=== PATIENT | female | born 1980 | race American Indian/Alaskan Native ===

== ENCOUNTER 2019-12-02 17:15 | Inpatient (IN) | payer OTHER ==
[2019-12-02 18:11] LABS: Basophils # (Auto) 0.1 K/mm3 (0.0-0.1); Eosinophils # (Auto) 0.1 K/mm3 (0.0-0.4); Eosinophils % (Auto) 2.1 % (0.0-4.3); Hematocrit 40.2 % (30.3-42.9); Hemoglobin 13.6 gm/dl (10.1-14.3); Lymphocytes # (Auto) 1.3 K/mm3 (1.2-5.4); Lymphocytes % (Auto) 24.3 % (13.4-35.0); Mean Corpuscular HGB Conc 34 % (30-34); Mean Corpuscular Volume 89 fl (79-97); Monocytes # (Auto) 0.3 K/mm3 (0.0-0.8); Monocytes % (Auto) 5.7 % (0.0-7.3); Platelet Count 322 K/mm3 (140-440); Red Blood Count 4.51 M/mm3 (3.65-5.03); Red Cell Distribution Width 16.4 % (13.2-15.2)
[2019-12-02 18:38] LABS: Blood Urea Nitrogen 9 mg/dL (7-17); Calcium 9.2 mg/dL (8.4-10.2); Hemolysis Index 102
[2019-12-02 18:47] LABS: BUN/Creatinine Ratio 13
[2019-12-02 19:13] LABS: Basophils # (Auto) 0.1 K/mm3 (0.0-0.1); Eosinophils # (Auto) 0.1 K/mm3 (0.0-0.4); Hematocrit 39.3 % (30.3-42.9); Hemoglobin 12.8 gm/dl (10.1-14.3); Lymphocytes # (Auto) 1.4 K/mm3 (1.2-5.4); Lymphocytes % (Auto) 28.7 % (13.4-35.0); Mean Corpuscular HGB Conc 33 % (30-34); Mean Corpuscular Volume 90 fl (79-97); Monocytes # (Auto) 0.3 K/mm3 (0.0-0.8); Monocytes % (Auto) 6.8 % (0.0-7.3); Platelet Count 314 K/mm3 (140-440); Red Blood Count 4.36 M/mm3 (3.65-5.03); Red Cell Distribution Width 16.3 % (13.2-15.2)
[2019-12-02 19:14] LABS: Creatine Kinase MB 2.6 ng/mL (0.0-4.0)
[2019-12-02 19:21] LABS: Bilirubin,Urine NEG (Negative); Blood,Urine NEG (Negative); Color,Urine Colorless (Yellow); Protein,Urine <15 mg/dL mg/dL (Negative); RBC,Urine < 1.0 /HPF (0.0-6.0); Urobilinogen,Urine < 2.0 mg/dL (<2.0); WBC,Urine < 1.0 /HPF (0.0-6.0)
--- NOTE | 2019-12-02 19:23 | Emergency Department Report ---
ED General Adult HPI - General Chief complaint: Neuro Symptoms/Deficit Stated complaint: POSS STROKE Time Seen by Provider: 12/02/19 17:37 Source: EMS Mode of arrival: Stretcher Limitations: No Limitations - History of Present Illness Initial comments: Patient states on Saturday she noticed that she began to have weakness of her right side that has progressively gotten worse since that time. Patient states on Saturday she also began to have slurred speech has become worse as well. Patient also complains of having numbness in her right arm and leg. She states that she is not able to walk appropriately due to the weakness in her right leg. Patient denies a history of hypertension, diabetes, hyperlipidemia. Patient also denies IV drug use or family history of heart murmurs. -: Gradual Severity scale (0 -10): 0 Consistency: constant Improves with: none Worsens with: none Associated Symptoms: denies other symptoms Treatments Prior to Arrival: none - Related Data Allergies Allergy/AdvReac Type Severity Reaction Status Date / Time No Known Allergies Allergy Unverified 12/02/19 17:52 ED Review of Systems ROS: Stated complaint: POSS STROKE Other details as noted in HPI Constitutional: denies: chills, fever Eyes: denies: eye pain, eye discharge, vision change ENT: denies: ear pain, throat pain Respiratory: denies: cough, shortness of breath, wheezing Cardiovascular: denies: chest pain, palpitations Endocrine: no symptoms reported Gastrointestinal: denies: abdominal pain, nausea, diarrhea Genitourinary: denies: urgency, dysuria, discharge Musculoskeletal: denies: back pain, joint swelling, arthralgia Skin: denies: rash, lesions Neurological: weakness, numbness. denies: headache, paresthesias Psychiatric: denies: anxiety, depression Hematological/Lymphatic: denies: easy bleeding, easy bruising ED Past Medical Hx - Past Medical History Previous Medical History?: No - Surgical History Past Surgical History?: Yes Hx Cholecystectomy: Yes - Social History Smoking Status: Current Every Day Smoker Substance Use Type: Alcohol ED Physical Exam - General Limitations: No Limitations ED Course Vital Signs 12/02/19 12/02/19 12/02/19 17:50 18:00 20:00 Temperature 98.2 F Pulse Rate 72 65 59 L Respiratory 16 15 14 Rate Blood Pressure 120/73 118/73 Blood Pressure 138/81 [Right] O2 Sat by Pulse 100 100 99 Oximetry 12/02/19 12/02/19 22:27 23:00 Temperature Pulse Rate 51 L Respiratory 18 11 L Rate Blood Pressure 136/79 Blood Pressure [Right] O2 Sat by Pulse 99 Oximetry ED Medical Decision Making - Lab Data Result diagrams: 12/02/19 18:34 12/02/19 17:56 Lab Results 12/02/19 12/02/19 12/02/19 Range/Units 17:56 17:56 18:34 WBC 5.3 5.0 (4.5-11.0) K/mm3 RBC 4.51 4.36 (3.65-5.03) M/mm3 Hgb 13.6 12.8 (10.1-14.3) gm/dl Hct 40.2 39.3 (30.3-42.9) % MCV 89 90 (79-97) fl MCH 30 29 (28-32) pg MCHC 34 33 (30-34) % RDW 16.4 H 16.3 H (13.2-15.2) % Plt Count 322 314 (140-440) K/mm3 Lymph % (Auto) 24.3 28.7 (13.4-35.0) % Wilkin % (Auto) 5.7 6.8 (0.0-7.3) % Eos % (Auto) 2.1 2.0 (0.0-4.3) % Baso % (Auto) 1.0 1.0 (0.0-1.8) % Lymph # 1.3 1.4 (1.2-5.4) K/mm3 Wilkin # 0.3 0.3 (0.0-0.8) K/mm3 Eos # 0.1 0.1 (0.0-0.4) K/mm3 Baso # 0.1 0.1 (0.0-0.1) K/mm3 Seg Neutrophils % 66.9 61.5 (40.0-70.0) % Seg Neutrophils # 3.6 3.1 (1.8-7.7) K/mm3 PT (12.2-14.9) Sec. INR (0.87-1.13) APTT (24.2-36.6) Sec. Thrombin Time (15.1-19.6) Sec. Sodium 139 (137-145) mmol/L Potassium 4.2 (3.6-5.0) mmol/L Chloride 101.6 (98-107) mmol/L Carbon Dioxide 23 (22-30) mmol/L Anion Gap 19 mmol/L BUN 9 (7-17) mg/dL Creatinine 0.7 (0.6-1.2) mg/dL Estimated GFR > 60 ml/min BUN/Creatinine Ratio 13 % Glucose 93 (65-100) mg/dL Calcium 9.2 (8.4-10.2) mg/dL Total Creatine Kinase 124 (30-135) units/L CK-MB (CK-2) 3.0 (0.0-4.0) ng/mL CK-MB (CK-2) Rel Index 2.4 (0-4) Troponin T < 0.010 (0.00-0.029) ng/mL Urine Color (Yellow) Urine Turbidity (Clear) Urine pH (5.0-7.0) Ur Specific [place] (1.003-1.030) Urine Protein (Negative) mg/dL Urine Glucose (UA) (Negative) mg/dL Urine Ketones (Negative) mg/dL Urine Blood (Negative) Urine Nitrite (Negative) Urine Bilirubin (Negative) Urine Urobilinogen (<2.0) mg/dL Ur Leukocyte Esterase (Negative) Urine WBC (Auto) (0.0-6.0) /HPF Urine RBC (Auto) (0.0-6.0) /HPF Urine HCG, Qual (Negative) Urine Opiates Screen Urine Methadone Screen Ur Barbiturates Screen Ur Phencyclidine Scrn Ur Amphetamines Screen U Benzodiazepines Scrn Urine Cocaine Screen U Marijuana (THC) Screen Drugs of Abuse Note Plasma/Serum Alcohol (0-0.07) % 12/02/19 12/02/19 12/02/19 Range/Units 18:34 18:34 18:34 WBC (4.5-11.0) K/mm3 RBC (3.65-5.03) M/mm3 Hgb (10.1-14.3) gm/dl Hct (30.3-42.9) % MCV (79-97) fl MCH (28-32) pg MCHC (30-34) % RDW (13.2-15.2) % Plt Count (140-440) K/mm3 Lymph % (Auto) (13.4-35.0) % Wilkin % (Auto) (0.0-7.3) % Eos % (Auto) (0.0-4.3) % Baso % (Auto) (0.0-1.8) % Lymph # (1.2-5.4) K/mm3 Wilkin # (0.0-0.8) K/mm3 Eos # (0.0-0.4) K/mm3 Baso # (0.0-0.1) K/mm3 Seg Neutrophils % (40.0-70.0) % Seg Neutrophils # (1.8-7.7) K/mm3 PT 13.3 (12.2-14.9) Sec. INR 1.00 (0.87-1.13) APTT 27.7 (24.2-36.6) Sec. Thrombin Time 14.6 L (15.1-19.6) Sec. Sodium (137-145) mmol/L Potassium (3.6-5.0) mmol/L Chloride (98-107) mmol/L Carbon Dioxide (22-30) mmol/L Anion Gap mmol/L BUN (7-17) mg/dL Creatinine (0.6-1.2) mg/dL Estimated GFR ml/min BUN/Creatinine Ratio % Glucose (65-100) mg/dL Calcium (8.4-10.2) mg/dL Total Creatine Kinase 103 (30-135) units/L CK-MB (CK-2) 2.6 (0.0-4.0) ng/mL CK-MB (CK-2) Rel Index 2.5 (0-4) Troponin T < 0.010 (0.00-0.029) ng/mL Urine Color (Yellow) Urine Turbidity (Clear) Urine pH (5.0-7.0) Ur Specific [place] (1.003-1.030) Urine Protein (Negative) mg/dL Urine Glucose (UA) (Negative) mg/dL Urine Ketones (Negative) mg/dL Urine Blood (Negative) Urine Nitrite (Negative) Urine Bilirubin (Negative) Urine Urobilinogen (<2.0) mg/dL Ur Leukocyte Esterase (Negative) Urine WBC (Auto) (0.0-6.0) /HPF Urine RBC (Auto) (0.0-6.0) /HPF Urine HCG, Qual (Negative) Urine Opiates Screen Urine Methadone Screen Ur Barbiturates Screen Ur Phencyclidine Scrn Ur Amphetamines Screen U Benzodiazepines Scrn Urine Cocaine Screen U Marijuana (THC) Screen Drugs of Abuse Note Plasma/Serum Alcohol 0.07 (0-0.07) % 12/02/19 12/02/19 12/02/19 Range/Units 18:40 18:40 20:30 WBC (4.5-11.0) K/mm3 RBC (3.65-5.03) M/mm3 Hgb (10.1-14.3) gm/dl Hct (30.3-42.9) % MCV (79-97) fl MCH (28-32) pg MCHC (30-34) % RDW (13.2-15.2) % Plt Count (140-440) K/mm3 Lymph % (Auto) (13.4-35.0) % Wilkin % (Auto) (0.0-7.3) % Eos % (Auto) (0.0-4.3) % Baso % (Auto) (0.0-1.8) % Lymph # (1.2-5.4) K/mm3 Wilkin # (0.0-0.8) K/mm3 Eos # (0.0-0.4) K/mm3 Baso # (0.0-0.1) K/mm3 Seg Neutrophils % (40.0-70.0) % Seg Neutrophils # (1.8-7.7) K/mm3 PT (12.2-14.9) Sec. INR (0.87-1.13) APTT (24.2-36.6) Sec. Thrombin Time (15.1-19.6) Sec. Sodium (137-145) mmol/L Potassium (3.6-5.0) mmol/L Chloride (98-107) mmol/L Carbon Dioxide (22-30) mmol/L Anion Gap mmol/L BUN (7-17) mg/dL Creatinine (0.6-1.2) mg/dL Estimated GFR ml/min BUN/Creatinine Ratio % Glucose (65-100) mg/dL Calcium (8.4-10.2) mg/dL Total Creatine Kinase (30-135) units/L CK-MB (CK-2) (0.0-4.0) ng/mL CK-MB (CK-2) Rel Index (0-4) Troponin T (0.00-0.029) ng/mL Urine Color Colorless (Yellow) Urine Turbidity Clear (Clear) Urine pH 6.0 (5.0-7.0) Ur Specific [place] 1.001 L (1.003-1.030) Urine Protein <15 mg/dl (Negative) mg/dL Urine Glucose (UA) Neg (Negative) mg/dL Urine Ketones Neg (Negative) mg/dL Urine Blood Neg (Negative) Urine Nitrite Neg (Negative) Urine Bilirubin Neg (Negative) Urine Urobilinogen < 2.0 (<2.0) mg/dL Ur Leukocyte Esterase Neg (Negative) Urine WBC (Auto) < 1.0 (0.0-6.0) /HPF Urine RBC (Auto) < 1.0 (0.0-6.0) /HPF Urine HCG, Qual Negative (Negative) Urine Opiates Screen Presumptive negative Urine Methadone Screen Presumptive negative Ur Barbiturates Screen Presumptive negative Ur Phencyclidine Scrn Presumptive negative Ur Amphetamines Screen Presumptive negative U Benzodiazepines Scrn Presumptive negative Urine Cocaine Screen Presumptive negative U Marijuana (THC) Screen Presumptive negative Drugs of Abuse Note Disclamer Plasma/Serum Alcohol (0-0.07) % - EKG Data -: EKG Interpreted by Ok EKG shows normal: sinus rhythm Rate: normal - Radiology Data Radiology results: report reviewed - Medical Decision Making Initially told neurology was not contacted due to the patient's symptoms started 72 hours prior to arrival to the ED CT of the head showed a subacute stroke CTA of the head and neck shows a complete ICA occlusion left side Patient given p.o. aspirin Critical care attestation.: If time is entered above; I have spent that time in minutes in the direct care of this critically ill patient, excluding procedure time. ED Disposition Clinical Impression: CVA (cerebral vascular accident) Disposition: DC-[id number] OP ADMIT IP TO THIS HOSP Is pt being admited?: Yes Does the pt Need Aspirin: No Condition: Fair Referrals: PRIMARY CARE, [Primary Care Provider] - 3-5 Days - Assessment Assessment Interval: Baseline - Level of Consciousness 1a. Level of Consciousness: alert/keenly responsive - LOC Questions 1b. LOC Questions: answers both correctly - LOC Command 1c. LOC Commands: performs tasks correctly - Best Gaze 2. Best Gaze: normal - Visual 3. Visual: partial hemianopia - Facial Palsy 4. Facial Palsy: minor paralysis - Motor Arm 5a. Motor Arm Left: no drift 5b. Motor Arm Right: some gravity effort - Motor Leg 6a. Motor Leg Left: no drift 6b. Motor Leg Right: some gravity effort - Limb Ataxia 7. Limb Ataxia: absent - Sensory 8. Sensory: mild/moderate sensory loss - Best Language 9. Best Language: no aphasia - Dysarthria 10. Dysarthria: mild/moderate dysarthria - Extinction and Inattention 11. Extinction/Inattention: no abnormality - Scoring Total Score: 8 Stroke Severity: Moderate Stroke
[2019-12-02 19:25] LABS: Amphetamine Screen,Urine PRESUMPTIVE NEGATIVE; Benzodiazepines Screen,Urine PRESUMPTIVE NEGATIVE; Cannabinoid Screen,Urine PRESUMPTIVE NEGATIVE; Cocaine Screen,Urine PRESUMPTIVE NEGATIVE; Methadone Screen,Urine PRESUMPTIVE NEGATIVE; Opiate Screen,Urine PRESUMPTIVE NEGATIVE
--- NOTE | 2019-12-02 19:25 | Cat Scan Report ---
CT HEAD WITHOUT CONTRAST INDICATION / CLINICAL INFORMATION: Stroke symptoms. TECHNIQUE: All CT scans at this location are performed using CT dose reduction for ALARA by means of automated e xposure control. COMPARISON: None available. FINDINGS: HEMORRHAGE: No evidence of intracranial hemorrhage or extra-axial fluid collection. EXTRA-AXIAL SPACES: Cortical sulci, sylvian fissures and basilar cisterns have an unremarkable appear ance. VENTRICULAR SYSTEM: The ventricular system is of normal size and configuration. CEREBRAL PARENCHYMA: There is a subtle area of decreased brain parenchymal attenuation near the left parietal vertex. (Series CT #2, image 17 and 18) This could represent an area of subacute ischemia. A similar but more subtle finding is observed in the adjacent left frontal lobe. Correlation with magn etic resonance imaging to include diffusion-weighted imaging is suggested. MIDLINE SHIFT OR HERNIATION: There is no mass effect. CEREBELLUM / BRAINSTEM: Brainstem and cerebellum have an unremarkable appearance. MIDLINE STRUCTURES:No abnormalities of the pituitary gland or pineal region are identified. INTRACRANIAL VESSELS:No abnormalities are identified on this noncontrast head CT. ORBITS: visualized portions of the orbits have an unremarkable appearance. SOFT TISSUES of HEAD: No significant abnormality. CALVARIUM: Evaluation of bone windows reveals no abnormalities. PARANASAL SINUSES / MASTOID AIR CELLS: Paranasal sinuses are free from inflammatory mucosal disease. Mastoid air cells are normally pneumatized. IMPRESSION: 1. Subtle areas of decreased brain parenchymal attenuation in the left frontal and parietal lobes may reflect sequelae of subacute infarction. Follow-up with MRI brain would be useful for further evalua tion of these findings. Signer Name: Yury Bianchi MD Signed: 12/02/2019 7:20 PM Workstation Name: [id number]
[2019-12-02 19:59] LABS: Partial Thromboplastin Time 27.7 Sec. (24.2-36.6); Thrombin Time 14.6 Sec. (15.1-19.6)
[2019-12-02 21:06] LABS: HCG Qualitative,Urine Negative (Negative)
--- NOTE | 2019-12-02 22:49 | Cat Scan Report ---
CT angio neck INDICATION / CLINICAL INFORMATION: 39 years Female; Stroke-Like Symptoms. TECHNIQUE: Thin cut axial images obtained through the head during IV bolus contrast administration. S agittal, coronal, and 3 plane MIP reconstructions performed by the technologist. NASCET type criteria used evaluate stenoses. All CT scans at this location are performed using CT dose reduction for ALAR A by means of automated exposure control. COMPARISON: None available. FINDINGS: CAROTID ARTERIES: There is no significant stenosis involving the carotid bifurcations or proximal int ernal carotid arteries by NASCET criteria. However, there is relative small caliber of the more dista l cervical left ICA without focal narrowing at. There is also suggestion of mild thickening of the wa ll involving the mid to distal left cervical ICA. There is notable irregularity of the cavernous segm ent of the left ICA which would be dictated in detail on the CTA head. VERTEBRAL ARTERIES: There is no significant focal stenosis involving the visualized vertebral arterie s. ARCH: The arch vessels are obscured by the streak artifact resulting from the dense contrast within t he adjacent venous structures. However, there is no clear evidence of significant stenosis involving the arch vessels. ADDITIONAL FINDINGS: Remainder of the surrounding soft tissues are grossly normal. IMPRESSION: There is decrease caliber of the left cervical carotid artery with notable irregularity of the visual ized intracranial segments; the CTA head will be dictated separately. There is no significant stenosis involving the carotid bifurcations or vertebral arteries. There was some delay dictation of this exam in that I was not notified by the technologist. Signer Name: Freeman Castillo MD Signed: 12/02/2019 10:44 PM Workstation Name: [id number]
--- NOTE | 2019-12-02 23:00 | Cat Scan Report ---
CT angio head INDICATION / CLINICAL INFORMATION: 39 years Female; Stroke-Like Symptoms. TECHNIQUE: Thin cut axial images obtained through the head during IV bolus contrast administration. S agittal, coronal, and 3 plane MIP reconstructions performed by the technologist. NASCET type criteria used evaluate stenoses. Automated exposure control utilized for radiation reduction purposes. COMPARISON: None available. FINDINGS: INTERNAL CAROTID ARTERIES: There is occlusion of the distal left ICA at the clinoid segment at. There is notable irregularity and small caliber of the left ICA more proximally. There appears be collater al flow via the posterior communicating arteries which opacifies the left MCA of vessels. There is slight calcification involving distal right ICA. There appears to be mild to moderate narrow ing of the right clinoid segment. VERTEBROBASILAR SYSTEM: There is no significant focal stenosis involving the vertebral basilar system . CEREBRAL ARTERIES: The motion degrades the image quality. However, there is no clear evidence of sign ificant stenosis involving the proximal cerebral arteries. There is relative decreased attenuation in volving the distal left MCA vessels, particularly along the high left lateral frontal region. ANEURYSM: None identified. ADDITIONAL FINDINGS: This mild mucosal thickening along the posterior right maxillary sinus. IMPRESSION: 1. There is occlusion of the distal left ICA with collateral flow as detailed above. There is notable irregularity and small caliber of the more proximal left ICA. There is relative decreased opacificat ion of the distal left MCA branches along the high left frontal region. 2. There is mild to moderate narrowing of the distal right ICA. There was some delay in the dictation of this exam, I was not initially notified by the radiochemical technician up on completion. Signer Name: Freeman Castillo MD Signed: 12/02/2019 10:55 PM Workstation Name: [id number]
[2019-12-02] MEDS ORDERED: ASPIRIN 81 MG TAB CHEW PO ONE (23:31)
[2019-12-02] MEDS ORDERED: ONDANSETRON 4 MG/2 ML INJ IV PRN ×2 (23:57)
[2019-12-02] MEDS ORDERED: MAGNESIUM HYDROXIDE (MOM) ORAL LIQD UDC PO PRN ×2 (23:57)
[2019-12-02] MEDS ORDERED: ACETAMINOPHEN 325 MG TAB PO PRN ×2 (23:57)
[2019-12-02] MEDS ORDERED: METOCLOPRAMIDE 10 MG TAB PO PRN (23:57)
[2019-12-02] MEDS ORDERED: PROMETHAZINE 25 MG RECT SUPP PR PRN (23:57)
[2019-12-02] MEDS ORDERED: MORPHINE 2 MG/1 ML INJ IV PRN (23:57)
--- NOTE | 2019-12-02 23:58 | Consultation ---
History of Present Illness - Reason for Consult Consult date: 12/02/19 - History of Present Illness [facility] Consult Services Stat Consult Date of Service: 12/02/2019 23:36:25 Impression: Rule Out Acute Ischemic Stroke Comments/Sign-Out: Subacute left MCA dist isch strokes with left ICA occlusion. Suggestive of cardioembolic stroke- admit for RERE and permanant loop recorder, hypercoag studies CT HEAD: Reviewed LMCA subacute stroke and L ICA occlusion Metrics: [facility] Notification Time: 12/02/2019 23:36:25 Stamp Time: 12/02/2019 23:36:25 Video Start Time: 12/02/2019 23:47:16 Our recommendations are outlined below. Recommendations: FLP/A1c Imaging Studies: MRI Head MRA Head and Neck Without Contrast When Available - Stroke Protocol Echocardiogram - Transthoracic Echocardiogram Therapies: Physical Therapy, Occupational Therapy, Speech Therapy Assessment When Applicable Disposition: Neurology Follow Up Recommended Sign Out: Discussed with Emergency Department Provider ----- Chief Complaint: right sided weakness History of Present Illness: Patient is a 39 year old Female. 39yF with no significant hx here for acute neuro changes. Symptom started 4 days ago last Saturday. She felt a little weakness of the right arm and it was uncoordinated. Yesterday she felt that the right leg was not moving properly. +Tobacco smoking No etoh or illciit drug use Past Medical History: Examination: BP(120/73), 1A: Level of Consciousness - Alert; keenly responsive + 0 1B: Ask Month and Age - Both Questions Right + 0 1C: Blink Eyes & Squeeze Hands - Performs Both Tasks + 0 2: Test Horizontal Extraocular Movements - Normal + 0 3: Test Visual Farmer - No Visual Loss + 0 4: Test Facial Palsy (Use Grimace if Obtunded) - Normal symmetry + 0 5A: Test Left Arm Motor Drift - No Drift for 10 Seconds + 0 5B: Test Right Arm Motor Drift - Drift, hits bed + 2 6A: Test Left Leg Motor Drift - No Drift for 5 Seconds + 0 6B: Test Right Leg Motor Drift - Drift, but doesn't hit bed + 1 7: Test Limb Ataxia (FNF/Heel-Grigsby) - No Ataxia + 0 8: Test Sensation - Mild-Moderate Loss: Less Sharp/More Dull + 1 9: Test Language/Aphasia - Normal; No aphasia + 0 10: Test Dysarthria - Normal + 0 11: Test Extinction/Inattention - No abnormality + 0 NIHSS Score: 4 Due to the immediate potential for life-threatening deterioration due to underlying acute neurologic illness, I spent 35 minutes providing critical care. This time includes time for face to face visit via telemedicine, review of medical records, imaging studies and discussion of findings with providers, the patient and/or family. Dr Ye Portillo [facility] Case [id number] Medications and Allergies Allergies Allergy/AdvReac Type Severity Reaction Status Date / Time No Known Allergies Allergy Unverified 12/02/19 17:52 Exam - Vital Signs Vital signs: Vital Signs Temp Pulse Resp BP Pulse Ox 98.2 F 68 18 138/81 100 12/02/19 17:50 12/02/19 17:50 12/02/19 17:50 12/02/19 17:50 12/02/19 17:50 Results - Lab Results 12/02/19 18:34 12/02/19 17:56 Most recent lab results Calcium 9.2 mg/dL (8.4-10.2) 12/02/19 17:56
--- NOTE | 2019-12-03 00:14 | History and Physical Report ---
History of Present Illness Date of examination: 12/02/19 Date of admission: 12/02/19 23:41 Chief complaint: Right Sided weakness and Numbness. History of present illness: Patient is a 39-year-old -Finnish female who presents to the emergency room today complaining of right-sided weakness and numbness. Symptoms was said to have started about 5 days ago and has gotten progressively worse. 3 days ago she started having slow speech but she denies any difficulty swallowing and denies any facial droop. Patient denies any fever or chills, no chest pain or shortness of breath, no headache or dizziness, no hematuria or dysuria, no history of cough. Patient denies any sick contacts and no recent travel. She denies contact with anyone with COVID-19. Work-up in the emergency room today shows complete occlusion of the left ICA on CT angiogram of the brain. CT scan of the head showed subacute stroke. Tele-neurology was consulted and recommendation is to place patient on aspirin and Plavix and also schedule patient for MRI of the brain and echocardiogram. Patient is to undergo full CVA work-up. Past History Past Medical History: No medical history Past Surgical History: No surgical history Social history: no significant social history Family history: diabetes (Uncle and Grand mother had D/Mellitus) Medications and Allergies Allergies Allergy/AdvReac Type Severity Reaction Status Date / Time No Known Allergies Allergy Verified 12/03/19 00:20 Active Meds: Active Medications Acetaminophen (Tylenol) 650 mg PO Q4H PRN PRN Reason: Pain, Mild (1-3) Acetaminophen (Tylenol) 650 mg PO Q4H PRN PRN Reason: Pain MILD(1-3)/Fever >100.5/CASTRO Aspirin (Aspirin) 325 mg PO QDAY [facility] Atorvastatin Calcium (Lipitor) 40 mg PO QHS [facility] Bisacodyl (Dulcolax) 10 mg [place] QDAY PRN PRN Reason: Constipation Clopidogrel Bisulfate (Plavix) 75 mg PO QDAY [facility] Magnesium Hydroxide (Milk Of Magnesia) 30 ml PO Q4H PRN PRN Reason: Constipation Magnesium Hydroxide (Milk Of Magnesia) 30 ml PO Q4H PRN PRN Reason: Constipation Metoclopramide HCl (Reglan) 10 mg PO Q6H PRN PRN Reason: Nausea And Vomiting Morphine Sulfate (Morphine) 2 mg IV Q4H PRN PRN Reason: Pain, Moderate (4-6) Ondansetron HCl (Zofran) 4 mg IV Q8H PRN PRN Reason: Nausea And Vomiting Ondansetron HCl (Zofran) 4 mg IV Q8H PRN PRN Reason: Nausea And Vomiting Promethazine HCl (Phenergan) 25 mg [place] Q6H PRN PRN Reason: Nausea And Vomiting Sodium Chloride (Sodium Chloride Flush Syringe 10 Ml) 10 ml INJ PRN PRN PRN Reason: LINE FLUSH Sodium Chloride (Sodium Chloride Flush Syringe 10 Ml) 10 ml IV BID NERIS Sodium Chloride (Sodium Chloride Flush Syringe 10 Ml) 10 ml IV PRN PRN PRN Reason: LINE FLUSH Review of Systems Constitutional: no fever, no chills Ears, nose, mouth and throat: no nasal congestion, no sore throat Cardiovascular: no chest pain, no palpitations Respiratory: no cough, no shortness of breath Gastrointestinal: no abdominal pain, no nausea, no vomiting, no diarrhea Genitourinary Female: no pelvic pain, no flank pain, no dysuria, no hematuria Musculoskeletal: no neck pain, no low back pain Integumentary: no rash, no pruritis Neurological: weakness (Right sided), numbness, change in speech, no headaches, no confusion, no memory loss, no double vision Psychiatric: no anxiety, no depression Exam - Constitutional Vitals: Temp Pulse Resp BP Pulse Ox 98.2 F 51 L 11 L 136/79 99 12/02/19 17:50 12/02/19 23:00 12/02/19 23:00 12/02/19 23:00 12/02/19 23:00 General appearance: Present: no acute distress, well-nourished - EENT Eyes: Present: PERRL, EOM intact. Absent: scleral icterus ENT: hearing intact, clear oral mucosa, dentition normal - Neck Neck: Present: supple, normal ROM - Respiratory Respiratory effort: normal Respiratory: bilateral: CTA - Cardiovascular Rhythm: regular Heart Sounds: Present: S1 & S2, systolic murmur (soft). Absent: gallop, oh tolic murmur, rub - Extremities Extremities: no ischemia, pulses intact, pulses symmetrical, No edema, Full ROM Peripheral Pulses: within normal limits - Abdominal General gastrointestinal: Present: soft, non-tender, non-distended, normal bowel sounds. Absent: mass - Integumentary Integumentary: Present: clear, warm, dry. Absent: rash - Musculoskeletal Musculoskeletal: right sided weakness - Psychiatric Psychiatric: appropriate mood/affect, intact judgment & insight, memory intact, cooperative - Neurologic Neurologic: CNII-XII intact, focal deficits (Right Sided Weakness) HEART Score - HEART Score Troponin: Troponin T < 0.010 ng/mL (0.00-0.029) 12/02/19 18:34 Results - Labs CBC & Chem 7: 12/02/19 18:34 12/02/19 17:56 Labs: Abnormal lab results 12/02/19 12/02/19 12/02/19 Range/Units 17:56 18:34 18:34 RDW 16.4 H 16.3 H (13.2-15.2) % Thrombin Time 14.6 L (15.1-19.6) Sec. Ur Specific [place] (1.003-1.030) 12/02/19 Range/Units 18:40 RDW (13.2-15.2) % Thrombin Time (15.1-19.6) Sec. Ur Specific [place] 1.001 L (1.003-1.030) Assessment and Plan - Patient Problems (1) CVA (cerebral vascular accident) Current Visit: Yes Status: Acute Plan to address problem: Patient admitted and placed on aspirin and Plavix. We will schedule patient for MRI of the brain and echocardiogram. We will request further evaluation by neurology. (2) DVT prophylaxis Current Visit: Yes Status: Acute Plan to address problem: Patient placed on sequential compression device. (3) Full code status Current Visit: Yes Status: Acute
[2019-12-03 06:10] LABS: Chol/HDL Ratio 3.27 %
--- NOTE | 2019-12-03 08:29 | Consultation ---
History of Present Illness Consult date: 12/03/19 Reason for Consult: Right side numbness and weakness History of present illness: Patient is a 39-year-old -Spanish female who presents to the emergency room today complaining of right-sided weakness and numbness. Symptoms was said to have started about 5 days ago and has gotten progressively worse. 3 days ago she started having slow speech but she denies any difficulty swallowing and denies any facial droop. Patient denies any fever or chills, no chest pain or shortness of breath, no headache or dizziness, no hematuria or dysuria, no history of cough. Patient denies any sick contacts and no recent travel. She denies contact with anyone with COVID-19. Work-up in the emergency room today shows complete occlusion of the left ICA on CT angiogram of the brain. CT scan of the head showed subacute stroke. Tele-neurology was consulted and recommendation is to place patient on aspirin and Plavix and also schedule patient for MRI of the brain and echocardiogram. Patient is to undergo full CVA work-up. Past History Past Medical History: No medical history Past Surgical History: No surgical history Social history: no significant social history Family history: diabetes (Uncle and Grand mother had D/Mellitus) Medications and Allergies Allergies Allergy/AdvReac Type Severity Reaction Status Date / Time No Known Allergies Allergy Verified 12/03/19 00:20 Active Meds: Active Medications Acetaminophen (Tylenol) 650 mg PO Q4H PRN PRN Reason: Pain, Mild (1-3) Acetaminophen (Tylenol) 650 mg PO Q4H PRN PRN Reason: Pain MILD(1-3)/Fever >100.5/CASTRO Aspirin (Aspirin) 325 mg PO QDAY [facility] Atorvastatin Calcium (Lipitor) 40 mg PO QHS [facility] Bisacodyl (Dulcolax) 10 mg [place] QDAY PRN PRN Reason: Constipation Clopidogrel Bisulfate (Plavix) 75 mg PO QDAY [facility] Magnesium Hydroxide (Milk Of Magnesia) 30 ml PO Q4H PRN PRN Reason: Constipation Magnesium Hydroxide (Milk Of Magnesia) 30 ml PO Q4H PRN PRN Reason: Constipation Metoclopramide HCl (Reglan) 10 mg PO Q6H PRN PRN Reason: Nausea And Vomiting Morphine Sulfate (Morphine) 2 mg IV Q4H PRN PRN Reason: Pain, Moderate (4-6) Ondansetron HCl (Zofran) 4 mg IV Q8H PRN PRN Reason: Nausea And Vomiting Ondansetron HCl (Zofran) 4 mg IV Q8H PRN PRN Reason: Nausea And Vomiting Promethazine HCl (Phenergan) 25 mg [place] Q6H PRN PRN Reason: Nausea And Vomiting Sodium Chloride (Sodium Chloride Flush Syringe 10 Ml) 10 ml INJ PRN PRN PRN Reason: LINE FLUSH Sodium Chloride (Sodium Chloride Flush Syringe 10 Ml) 10 ml IV BID [facility] Sodium Chloride (Sodium Chloride Flush Syringe 10 Ml) 10 ml IV PRN PRN PRN Reason: LINE FLUSH Review of Systems Constitutional: no fever, no chills Ears, nose, mouth and throat: no nasal congestion, no sore throat Cardiovascular: no chest pain, no palpitations Respiratory: no cough, no shortness of breath Gastrointestinal: no abdominal pain, no nausea, no vomiting, no diarrhea Genitourinary Female: no pelvic pain, no flank pain, no dysuria, no hematuria Musculoskeletal: no neck pain, no low back pain Integumentary: no rash, no pruritis Neurological: weakness (Right sided), numbness, change in speech, no headaches, no confusion, no memory loss, no double vision Psychiatric: no anxiety, no depression Past History Past Medical History: No medical history Past Surgical History: No surgical history Social history: no significant social history Family history: diabetes (Uncle and Grand mother had D/Mellitus) Medications and Allergies Allergies Allergy/AdvReac Type Severity Reaction Status Date / Time No Known Allergies Allergy Verified 12/03/19 00:20 Home Medications Medication Instructions Recorded Confirmed Last Taken Type No Known Home Medications [No 12/03/19 12/03/19 Unknown History Reported Home Medications] Active Meds: Active Medications Acetaminophen (Tylenol) 650 mg PO Q4H PRN PRN Reason: Pain MILD(1-3)/Fever >100.5/CASTRO Aspirin (Aspirin) 325 mg PO QDAY [facility] Atorvastatin Calcium (Lipitor) 40 mg PO QHS [facility] Bisacodyl (Dulcolax) 10 mg [place] QDAY PRN PRN Reason: Constipation Clopidogrel Bisulfate (Plavix) 75 mg PO QDAY [facility] Magnesium Hydroxide (Milk Of Magnesia) 30 ml PO Q4H PRN PRN Reason: Constipation Metoclopramide HCl (Reglan) 10 mg PO Q6H PRN PRN Reason: Nausea And Vomiting Morphine Sulfate (Morphine) 2 mg IV Q4H PRN PRN Reason: Pain, Moderate (4-6) Ondansetron HCl (Zofran) 4 mg IV Q8H PRN PRN Reason: Nausea And Vomiting Promethazine HCl (Phenergan) 25 mg [place] Q6H PRN PRN Reason: Nausea And Vomiting Sodium Chloride (Sodium Chloride Flush Syringe 10 Ml) 10 ml IV BID [facility] Sodium Chloride (Sodium Chloride Flush Syringe 10 Ml) 10 ml IV PRN PRN PRN Reason: LINE FLUSH Physical Examination - Vital Signs Vital Signs: Vital Signs Temp Pulse Resp BP Pulse Ox 98.2 F 68 18 138/81 100 12/02/19 17:50 12/02/19 17:50 12/02/19 17:50 12/02/19 17:50 12/02/19 17:50 - Constitutional General appearance: comfortable - EENT EENT: Present: PERRL - Respiratory Respiratory: Present: chest non-tender - Cardiovascular Cardiovascular: Present: regular rate Extremities: Present: no peripheral edema bilatateraly - Gastrointestinal Gastrointestinal: Present: normoactive bowel sounds - Integumentary Integumentary: Present: normal - Neurologic Cranial nerve examination: anosmic, PERRL, facial droop, other (right upper 2/5, right lower 3/5, sensation intact with subjective sensory impaiment) - Level of Consciousness 1a. Level of Consciousness: alert/keenly responsive - LOC Questions 1b. LOC Questions: answers both correctly - LOC Command 1c. LOC Commands: performs tasks correctly - Best Gaze 2. Best Gaze: normal - Visual 3. Visual: no visual loss - Facial Palsy 4. Facial Palsy: minor paralysis - Motor Arm 5a. Motor Arm Left: no drift 5b. Motor Arm Right: some gravity effort - Motor Leg 6a. Motor Leg Left: no drift 6b. Motor Leg Right: some gravity effort - Limb Ataxia 7. Limb Ataxia: absent - Sensory 8. Sensory: mild/moderate sensory loss - Best Language 9. Best Language: no aphasia - Dysarthria 10. Dysarthria: normal - Extinction and Inattention 11. Extinction/Inattention: no abnormality - Scoring Total Score: 6 Stroke Severity: Moderate Stroke Results - Laboratory Findings CBC and BMP: 12/02/19 18:34 12/02/19 17:56 Abnormal Lab Findings: Abnormal Labs 12/02/19 12/02/19 12/02/19 17:56 18:34 18:34 RDW 16.4 H 16.3 H Thrombin Time 14.6 L Triglycerides Cholesterol LDL Cholesterol Direct HDL Cholesterol Ur Specific [place] 12/02/19 12/03/19 18:40 04:58 RDW Thrombin Time Triglycerides 228 H Cholesterol 213 H LDL Cholesterol Direct 133 H HDL Cholesterol 65 H Ur Specific [place] 1.001 L Assessment and Plan Assessment and Plan - Patient Problems (1) CVA (cerebral vascular accident) -39ys old femal presented with a new onset of right side numbness and weakness X3 days she is not a candidate for TPA -CTA is remarkable for left side decrease caliber in distal cervical ICA and increse irregularities in cavernous segnment of left ICA, -Echo is EF#55-60% -MRI brain is remarkable for left frontal and parietal involvment -Allow for permissive HTN for 24 Hours -ASA 325 mg plus Plavix 75 mg daily for 3 months then Plavix alone there after -UDS -Lipitor #80 mg daily ,LDL#133 -PT/ST evaluation -ESR,ADRIANA,Sickle screen,Lupus anticoagulant -R/O DVT -Check for -Might need to consider RERE r/o ASD -Cardiac monitering (2) DVT prophylaxis Patient placed on sequential compression device. (3) Full code status Will follow
--- NOTE | 2019-12-03 09:36 | Magnetic Resonance Report ---
MR brain wo con INDICATION / CLINICAL INFORMATION: 39 years Female; MAIN. TECHNIQUE: Multiplanar, multisequence MR images of the brain were obtained. COMPARISON: The study is compared to earlier CT of 12/02/2019. FINDINGS: BRAIN / INTRACRANIAL CONTENTS: There are patchy areas of acute infarction involving involving the lef t parietal lobe measuring approximately 3 cm in greatest AP dimension. There are also smaller scatter ed foci within the left frontal lobe involving the subcortical region. Additionally, there are a few small foci of acute infarction involving the border zone vascular distribution of the right cerebral hemisphere. There is associated mass effect with mild sulcal effacement along the left parietal lobe. The ventricular system is appropriate in size and configuration. No extra-axial fluid collections are identified. The findings are most consistent with small focus of calcification within the left globu s pallidus with increased T1 weighted signal. CRANIOCERVICAL JUNCTION: No significant abnormality. VASCULAR FLOW-VOIDS: There is heterogeneous signal within the distal left ICA which correlates with t he earlier CTA demonstrating occlusion of the distal left ICA and slow flow proximally. 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 Increased FLAIR signal is noted within the poste rior left insular branch of the left MCA which may also reflect thrombus and occlusion. ORBITS: No significant abnormality of visualized orbits. SINUSES / MASTOIDS: No significant abnormality in the visualized paranasal sinuses or mastoid air florencio ls. ADDITIONAL FINDINGS: None. IMPRESSION: 1. There are patchy areas of acute infarction involving the cerebral hemispheres, greater on the left , most notably involving the left parietal lobe as detailed above. 2. There is heterogeneous signal within the distal left ICA compatible with occlusion or very slow fl ow. Signer Name: Freeman Castillo MD Signed: 12/03/2019 9:32 AM Workstation Name: [id number]
[2019-12-03] MEDS: CLOPIDOGREL 75 MG TAB PO SCH (11:20)
[2019-12-03] MEDS: ASPIRIN 325 MG TAB PO SCH (11:20)
--- NOTE | 2019-12-03 12:09 | Vascular Lab Report ---
VL carotid duplex BILAT INDICATION / CLINICAL INFORMATION: stroke COMPARISON: None available. FINDINGS: RIGHT CAROTID: - CCA velocity: 103 cm/sec. - ICA peak systolic velocity: 68 cm/sec. - ICA/CCA PSV Ratio: Less than 2 Right Vertebral Artery: Antegrade flow. LEFT CAROTID: - CCA velocity: 109 cm/sec. - ICA peak systolic velocity: 29 cm/sec. - ICA/CCA PSV Ratio: Less than 2 Left Vertebral Artery: Antegrade flow. IMPRESSION: 1. Decreased velocities in the left internal carotid artery related to patient's known distal occlusi on seen on prior CTA head. 2. No occlusion or significant stenosis in the right internal carotid artery. Velocity criteria are extrapolated from diameter data as defined by the Society of Radiologists in Ul trasound Consensus Conference, Radiology 2003; 229;340-346. NO STENOSIS (NORMAL) * Plaque = none; ICA PSV < 125 cm/sec; ICA/CCA PSV Ratio < 2.0 <50% STENOSIS * Plaque < 50%; ICA PSV < 125 cm/sec; ICA/CCA PSV Ratio < 2.0 50-69% STENOSIS * Plaque > 50%; ICA PSV = 125-230 cm/sec; ICA/CCA PSV Ratio = 2.0-4.0 >70% BUT <100% STENOSIS * Plaque > 50%; ICA PSV < 230 cm/sec; ICA/CCA PSV Ratio > 4.0 NEAR OCCLUSION * Plaque = visible lumen; ICA PSV = high/low/none; ICA/CCA PSV Ratio = variable TOTAL OCCLUSION * Plaque = no lumen; ICA PSV = none; ICA/CCA PSV Ratio = N/A Signer Name: Timur Carlson MD Signed: 12/03/2019 12:05 PM Workstation Name: [id number]
--- NOTE | 2019-12-03 14:32 | Progress Note ---
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 preserved Ef on echocardio gram. MRI brain positive for acute CVA neurology consulted, wait for PT eval -- DVT prophylaxis Patient placed on sequential compression device. -- Full code status Brief history; Patient is a 39-year-old -[place] female who presents to the emergency room complaining of right-sided weakness and numbness started about 5 days ago and has gotten progressively worse. 3 days ago she started having slow speech but she denies any difficulty swallowing and denies any facial droop. Work-up in the emergency room today shows complete occlusion of the left ICA on CT angiogram of the brain. CT scan of the head showed subacute stroke. Tele-neurology was consulted and recommendation is to place patient on aspirin and Plavix and admit with full CVA work-up. MRI: 1. There are patchy areas of acute infarction involving the cerebral hemispheres, greater on the left, most notably involving the left parietal lobe as detailed above. 2. There is heterogeneous signal within the distal left ICA compatible with occlusion or very slow flow. 12/02; MRI suggestive of acute CVA, cont aspirin and statin. follow PT eval Subjective Date of service: 12/03/19 Interval history: Patient seen and examined c/o rightsided weakness, tolerating diet denies chest pain or SOB Objective - Exam Narrative Exam: General appearance: Present: no acute distress, well-nourished - EENT Eyes: Present: PERRL, EOM intact. Absent: scleral icterus ENT: hearing intact, clear oral mucosa, dentition normal - Neck Neck: Present: supple, normal ROM - Respiratory Respiratory effort: normal Respiratory: bilateral: CTA - Cardiovascular Rhythm: regular Heart Sounds: Present: S1 & S2, systolic murmur (soft). Absent: gallop, diastolic murmur, rub - Extremities Extremities: no ischemia, pulses intact, pulses symmetrical, No edema, Full ROM Peripheral Pulses: within normal limits - Abdominal General gastrointestinal: Present: soft, non-tender, non-distended, normal bowel sounds. Absent: mass - Integumentary Integumentary: Present: clear, warm, dry. Absent: rash - Musculoskeletal Musculoskeletal: right sided weakness - Psychiatric Psychiatric: appropriate mood/affect, intact judgment & insight, memory intact, cooperative - Neurologic Neurologic: CNII-XII intact, focal deficits (Right Sided Weakness) - Constitutional Vitals: Vital Signs - 12hr 12/03/19 12/03/19 12/03/19 04:27 07:39 11:38 Temperature 98.2 F 98.6 F 98.0 F Pulse Rate 54 L 49 L 49 L Respiratory 16 16 18 Rate Blood Pressure 115/69 120/77 134/86 O2 Sat by Pulse 99 97 100 Oximetry - Labs CBC & Chem 7: 12/04/19 04:41 12/04/19 04:41 Labs: Abnormal lab results 12/02/19 12/02/19 12/02/19 Range/Units 17:56 18:34 18:34 RDW 16.4 H 16.3 H (13.2-15.2) % Thrombin Time 14.6 L (15.1-19.6) Sec. Triglycerides (2-149) mg/dL Cholesterol (50-199) mg/dL LDL Cholesterol Direct (50-130) mg/dL HDL Cholesterol (40-59) mg/dL Ur Specific [place] (1.003-1.030) 12/02/19 12/03/19 Range/Units 18:40 04:58 RDW (13.2-15.2) % Thrombin Time (15.1-19.6) Sec. Triglycerides 228 H (2-149) mg/dL Cholesterol 213 H (50-199) mg/dL LDL Cholesterol Direct 133 H (50-130) mg/dL HDL Cholesterol 65 H (40-59) mg/dL Ur Specific [place] 1.001 L (1.003-1.030) HEART Score - HEART Score Troponin: Troponin T < 0.010 ng/mL (0.00-0.029) 12/02/19 18:34
[2019-12-04 06:56] LABS: Basophils % (Auto) 0.5 % (0.0-1.8); Eosinophils # (Auto) 0.2 K/mm3 (0.0-0.4); Eosinophils % (Auto) 4.9 % (0.0-4.3); Hematocrit 39.5 % (30.3-42.9); Hemoglobin 12.9 gm/dl (10.1-14.3); Lymphocytes # (Auto) 1.9 K/mm3 (1.2-5.4); Lymphocytes % (Auto) 39.1 % (13.4-35.0); Mean Corpuscular HGB Conc 33 % (30-34); Mean Corpuscular Volume 90 fl (79-97); Monocytes # (Auto) 0.4 K/mm3 (0.0-0.8); Monocytes % (Auto) 8.5 % (0.0-7.3); Platelet Count 340 K/mm3 (140-440); Red Blood Count 4.38 M/mm3 (3.65-5.03); Red Cell Distribution Width 16.3 % (13.2-15.2)
[2019-12-04 07:06] LABS: INR 0.97 (0.87-1.13)
[2019-12-04 07:12] LABS: Blood Urea Nitrogen 8 mg/dL (7-17); Calcium 8.9 mg/dL (8.4-10.2); Hemolysis Index 20
[2019-12-04 08:04] LABS: BUN/Creatinine Ratio 13
[2019-12-04] MEDS: ASPIRIN 325 MG TAB PO SCH (09:19)
[2019-12-04] MEDS: CLOPIDOGREL 75 MG TAB PO SCH (09:20)
--- NOTE | 2019-12-04 15:42 | Progress Note ---
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 preserved Ef on echocardio gram. MRI brain positive for acute CVA neurology consulted, wait for PT eval -- DVT prophylaxis Patient placed on sequential compression device. -- Full code status Brief history; Patient is a 39-year-old -[place] female who presents to the emergency room complaining of right-sided weakness and numbness started about 5 days ago and has gotten progressively worse. 3 days ago she started having slow speech but she denies any difficulty swallowing and denies any facial droop. Work-up in the emergency room today shows complete occlusion of the left ICA on CT angiogram of the brain. CT scan of the head showed subacute stroke. Tele-neurology was consulted and recommendation is to place patient on aspirin and Plavix and admit with full CVA work-up. MRI: 1. There are patchy areas of acute infarction involving the cerebral hemispheres, greater on the left, most notably involving the left parietal lobe as detailed above. 2. There is heterogeneous signal within the distal left ICA compatible with occlusion or very slow flow. 12/02; MRI suggestive of acute CVA, cont aspirin and statin. follow PT eval 12/03; patient need acute rehab, CM consulted for placement. Subjective Date of service: 12/04/19 Interval history: Patient seen and examined c/o rightsided weakness, tolerating diet denies chest pain or SOB Need acute rehab for discharge Objective - Exam Narrative Exam: General appearance: Present: no acute distress, well-nourished - EENT Eyes: Present: PERRL, EOM intact. Absent: scleral icterus ENT: hearing intact, clear oral mucosa, dentition normal - Neck Neck: Present: supple, normal ROM - Respiratory Respiratory effort: normal Respiratory: bilateral: CTA - Cardiovascular Rhythm: regular Heart Sounds: Present: S1 & S2, systolic murmur (soft). Absent: gallop, diastolic murmur, rub - Extremities Extremities: no ischemia, pulses intact, pulses symmetrical, No edema, Full ROM Peripheral Pulses: within normal limits - Abdominal General gastrointestinal: Present: soft, non-tender, non-distended, normal bowel sounds. Absent: mass - Integumentary Integumentary: Present: clear, warm, dry. Absent: rash - Musculoskeletal Musculoskeletal: right sided weakness - Psychiatric Psychiatric: appropriate mood/affect, intact judgment & insight, memory intact, cooperative - Neurologic Neurologic: CNII-XII intact, focal deficits (Right Sided Weakness) - Constitutional Vitals: Vital Signs - 12hr 12/04/19 12/04/19 08:00 08:40 Temperature 98.1 F Pulse Rate 45 L Respiratory 17 Rate Blood Pressure 110/57 - Labs CBC & Chem 7: 12/04/19 04:41 12/04/19 04:41 Labs: Abnormal lab results 12/04/19 12/04/19 Range/Units 04:41 04:41 RDW 16.3 H (13.2-15.2) % Lymph % (Auto) 39.1 H (13.4-35.0) % [place] % (Auto) 8.5 H (0.0-7.3) % Eos % (Auto) 4.9 H (0.0-4.3) % Glucose 101 H (65-100) mg/dL HEART Score - HEART Score Troponin: Troponin T < 0.010 ng/mL (0.00-0.029) 12/02/19 18:34
[2019-12-05] MEDS: CLOPIDOGREL 75 MG TAB PO SCH (09:23)
[2019-12-05] MEDS: ASPIRIN 325 MG TAB PO SCH (09:23)
--- NOTE | 2019-12-05 15:17 | Consultation ---
History of Present Illness Consult date: 12/05/19 Consult reason: bradycardia History of present illness: 39 YO woman originally presented to ED on 12/02/19 complaining of right-sided weakness and numbness which started about 5 days ago and had gotten progressively worse. She started having slow speech but she denies any difficulty swallowing and denies any facial droop about 3 days prior to p resentation. Work-up in the emergency room revealed complete occlusion of the left ICA on CT angiogram of the brain and CT scan of the head showed subacute stroke. She has now been hospitalized and is undergoing treatment/evaluation for acute CVA. Cardiology is being consulted due to sinus bradycardia ECG 12/02/2019 revealed sinus bradycardia at 53 bpm with early repolarization Echocardiogram on 12/03/2019 revealed normal LVEF of 55-60% with trace TR, mild MR, mild pulm htn, no shunt based on agitated saline injection. Past History Past Medical History: No medical history Past Surgical History: No surgical history Social history: no significant social history Family history: diabetes (Uncle and Grand mother had D/Mellitus) Medications and Allergies Allergies Allergy/AdvReac Type Severity Reaction Status Date / Time No Known Allergies Allergy Verified 12/03/19 00:20 Home Medications Medication Instructions Recorded Confirmed Last Taken Type Aspirin EC [Halfprin EC] 81 mg PO QDAY #30 tablet. 12/05/19 Unknown Rx AtorvaSTATin [Lipitor] 80 mg PO QHS #30 tablet 12/05/19 Unknown Rx Clopidogrel [Plavix] 75 mg PO QDAY #30 tablet 12/05/19 Unknown Rx Active Meds: Active Medications Acetaminophen (Tylenol) 650 mg PO Q4H PRN PRN Reason: Pain MILD(1-3)/Fever >100.5/CASTRO Aspirin (Aspirin) 325 mg PO QDAY [facility] Last Admin: 12/05/19 09:23 Dose: 325 mg Documented by: Atorvastatin Calcium (Lipitor) 80 mg PO QHS [facility] Last Admin: 12/04/19 21:56 Dose: 80 mg Documented by: Bisacodyl (Dulcolax) 10 mg SC QDAY PRN PRN Reason: Constipation Clopidogrel Bisulfate (Plavix) 75 mg PO QDAY [facility] Last Admin: 12/05/19 09:23 Dose: 75 mg Documented by: Magnesium Hydroxide (Milk Of Magnesia) 30 ml PO Q4H PRN PRN Reason: Constipation Metoclopramide HCl (Reglan) 10 mg PO Q6H PRN PRN Reason: Nausea And Vomiting Morphine Sulfate (Morphine) 2 mg IV Q4H PRN PRN Reason: Pain, Moderate (4-6) Ondansetron HCl (Zofran) 4 mg IV Q8H PRN PRN Reason: Nausea And Vomiting Promethazine HCl (Phenergan) 25 mg SC Q6H PRN PRN Reason: Nausea And Vomiting Sodium Chloride (Sodium Chloride Flush Syringe 10 Ml) 10 ml IV BID NERIS Last Admin: 12/05/19 09:23 Dose: 10 ml Documented by: Sodium Chloride (Sodium Chloride Flush Syringe 10 Ml) 10 ml IV PRN PRN PRN Reason: LINE FLUSH Review of Systems All systems: negative (per hpi) Physical Examination Vital Signs Temp Pulse Resp BP Pulse Ox 98.2 F 68 18 138/81 100 12/02/19 17:50 12/02/19 17:50 12/02/19 17:50 12/02/19 17:50 12/02/19 17:50 General appearance: no acute distress Neck: Positive: neck supple Cardiac: Positive: Regular Rhythm, Bradycardia Lungs: Positive: clear to auscultation Abdomen: Positive: Soft, Active Bowel Sounds Extremities: Absent: edema Results 12/04/19 04:41 12/04/19 04:41 Assessment and Plan S/P Acute CVA Asymptomatic sinus bradycardia Recommend: Continue ongoing evaluation and treatment for acute CVA No specific treatment is needed for asymptomatic sinus bradycardia
--- NOTE | 2019-12-05 15:21 | Progress Note ---
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 preserved Ef on echocardio gram. MRI brain positive for acute CVA neurology consulted, wait for PT eval -- DVT prophylaxis Patient placed on sequential compression device. -- Full code status Brief history; Patient is a 39-year-old -[place] female who presents to the emergency room complaining of right-sided weakness and numbness started about 5 days ago and has gotten progressively worse. 3 days ago she started having slow speech but she denies any difficulty swallowing and denies any facial droop. Work-up in the emergency room today shows complete occlusion of the left ICA on CT angiogram of the brain. CT scan of the head showed subacute stroke. Tele-neurology was consulted and recommendation is to place patient on aspirin and Plavix and admit with full CVA work-up. MRI: 1. There are patchy areas of acute infarction involving the cerebral hemispheres, greater on the left, most notably involving the left parietal lobe as detailed above. 2. There is heterogeneous signal within the distal left ICA compatible with occlusion or very slow flow. 12/02; MRI suggestive of acute CVA, cont aspirin and statin. follow PT eval 12/03; patient need acute rehab, CM consulted for placement. 12/04: patient waiting on placement. Remains persistently bradycardic at low 40s on telemetry. Will consult cardiology for further recommendation Subjective Date of service: 12/05/19 Interval history: Patient seen and examined c/o rightsided weakness, tolerating diet denies chest pain or SOB Need acute rehab for discharge Objective - Exam Narrative Exam: General appearance: Present: no acute distress, well-nourished - EENT Eyes: Present: PERRL, EOM intact. Absent: scleral icterus ENT: hearing intact, clear oral mucosa, dentition normal - Neck Neck: Present: supple, normal ROM - Respiratory Respiratory effort: normal Respiratory: bilateral: CTA - Cardiovascular Rhythm: regular Heart Sounds: Present: S1 & S2, systolic murmur (soft). Absent: gallop, diastolic murmur, rub - Extremities Extremities: no ischemia, pulses intact, pulses symmetrical, No edema, Full ROM Peripheral Pulses: within normal limits - Abdominal General gastrointestinal: Present: soft, non-tender, non-distended, normal bowel sounds. Absent: mass - Integumentary Integumentary: Present: clear, warm, dry. Absent: rash - Musculoskeletal Musculoskeletal: right sided weakness - Psychiatric Psychiatric: appropriate mood/affect, intact judgment & insight, memory intact, cooperative - Neurologic Neurologic: CNII-XII intact, focal deficits (Right Sided Weakness) - Constitutional Vitals: Vital Signs - 12hr 12/05/19 12/05/19 12/05/19 05:22 07:20 07:54 Temperature 98.4 F 98.3 F Pulse Rate 50 L 48 L 49 L Respiratory 20 16 Rate Blood Pressure 102/59 104/60 O2 Sat by Pulse 100 96 Oximetry 12/05/19 12/05/19 08:24 11:52 Temperature 98.4 F Pulse Rate 48 L Respiratory 18 16 Rate Blood Pressure 104/62 O2 Sat by Pulse 97 Oximetry - Labs CBC & Chem 7: 12/04/19 04:41 12/04/19 04:41 HEART Score - HEART Score Troponin: Troponin T < 0.010 ng/mL (0.00-0.029) 12/02/19 18:34
[2019-12-06] MEDS: CLOPIDOGREL 75 MG TAB PO SCH (09:23)
[2019-12-06] MEDS: ASPIRIN 325 MG TAB PO SCH (09:23)
--- NOTE | 2019-12-06 14:02 | Progress Note ---
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 preserved Ef on echocardio gram. MRI brain positive for acute CVA neurology consulted, wait for PT eval Sinus bradycardia, preserved EF - consulted cardiology, recommended supportive care -- DVT prophylaxis Patient placed on sequential compression device. -- Full code status Brief history; Patient is a 39-year-old -[place] female who presents to the emergency room complaining of right-sided weakness and numbness started about 5 days ago and has gotten progressively worse. 3 days ago she started having slow speech but she denies any difficulty swallowing and denies any facial droop. Work-up in the emergency room today shows complete occlusion of the left ICA on CT angiogram of the brain. CT scan of the head showed subacute stroke. Tele-neurology was consulted and recommendation is to place patient on aspirin and Plavix and admit with full CVA work-up. MRI: 1. There are patchy areas of acute infarction involving the cerebral hemispheres, greater on the left, most notably involving the left parietal lobe as detailed above. 2. There is heterogeneous signal within the distal left ICA compatible with occlusion or very slow flow. 12/02; MRI suggestive of acute CVA, cont aspirin and statin. follow PT eval 12/03; patient need acute rehab, CM consulted for placement. 12/04: patient waiting on placement. Remains persistently bradycardic at low 40s on telemetry. Will consult cardiology for further recommendation 12/05; clinically stable, discharge pending on acute rehab placement Subjective Date of service: 12/06/19 Interval history: Patient seen and examined c/o rightsided weakness, tolerating diet denies chest pain or SOB Need acute rehab for discharge Objective - Exam Narrative Exam: General appearance: Present: no acute distress, well-nourished - EENT Eyes: Present: PERRL, EOM intact. Absent: scleral icterus ENT: hearing intact, clear oral mucosa, dentition normal - Neck Neck: Present: supple, normal ROM - Respiratory Respiratory effort: normal Respiratory: bilateral: CTA - Cardiovascular Rhythm: regular Heart Sounds: Present: S1 & S2, systolic murmur (soft). Absent: gallop, diastolic murmur, rub - Extremities Extremities: no ischemia, pulses intact, pulses symmetrical, No edema, Full ROM Peripheral Pulses: within normal limits - Abdominal General gastrointestinal: Present: soft, non-tender, non-distended, normal bowel sounds. Absent: mass - Integumentary Integumentary: Present: clear, warm, dry. Absent: rash - Musculoskeletal Musculoskeletal: right sided weakness - Psychiatric Psychiatric: appropriate mood/affect, intact judgment & insight, memory intact, cooperative - Neurologic Neurologic: CNII-XII intact, focal deficits (Right Sided Weakness) - Constitutional Vitals: Vital Signs - 12hr 12/06/19 12/06/19 12/06/19 03:36 07:34 07:35 Temperature 98.4 F 98.9 F Pulse Rate 49 L 49 L 46 L Respiratory 16 16 Rate Blood Pressure 90/50 113/64 O2 Sat by Pulse 99 95 Oximetry 12/06/19 12/06/19 07:56 11:15 Temperature 98.0 F Pulse Rate 55 L Respiratory 18 18 Rate Blood Pressure 113/59 O2 Sat by Pulse 92 Oximetry - Labs CBC & Chem 7: 12/04/19 04:41 12/04/19 04:41 HEART Score - HEART Score Troponin: Troponin T < 0.010 ng/mL (0.00-0.029) 12/02/19 18:34
--- NOTE | 2019-12-06 14:05 | Progress Note ---
Assessment and Plan S/P Acute CVA Asymptomatic sinus bradycardia Recommend: Continue ongoing evaluation and treatment for acute CVA No specific treatment is needed for asymptomatic sinus bradycardia Will follow on PRN basis Subjective Date of service: 12/06/19 Interval history: No acute events Objective Vital Signs Temp Pulse Resp BP Pulse Ox 12/06/19 11:15 98.0 F 55 L 18 113/59 92 12/06/19 07:56 18 12/06/19 07:35 46 L 12/06/19 07:34 98.9 F 49 L 16 113/64 95 12/06/19 03:36 98.4 F 49 L 16 90/50 99 12/05/19 23:01 98.2 F 54 L 16 128/71 99 12/05/19 22:00 49 L 12/05/19 18:58 98.4 F 53 L 16 105/63 100 - Physical Examination Neck: Positive: neck supple Cardiac: Positive: Reg Rate and Rhythm Lungs: Positive: clear to auscultation Abdomen: Positive: Soft, Active Bowel Sounds Extremities: Absent: edema
[2019-12-07] MEDS: CLOPIDOGREL 75 MG TAB PO SCH (09:35)
[2019-12-07] MEDS: ASPIRIN 325 MG TAB PO SCH (09:35)
--- NOTE | 2019-12-07 12:27 | Progress Note ---
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 preserved Ef on echocardio gram. MRI brain positive for acute CVA neurology consulted, wait for PT eval Sinus bradycardia, preserved EF - consulted cardiology, recommended supportive care -- DVT prophylaxis Patient placed on sequential compression device. -- Full code status Brief history; Patient is a 39-year-old -[place] female who presents to the emergency room complaining of right-sided weakness and numbness started about 5 days ago and has gotten progressively worse. 3 days ago she started having slow speech but she denies any difficulty swallowing and denies any facial droop. Work-up in the emergency room today shows complete occlusion of the left ICA on CT angiogram of the brain. CT scan of the head showed subacute stroke. Tele-neurology was consulted and recommendation is to place patient on aspirin and Plavix and admit with full CVA work-up. MRI: 1. There are patchy areas of acute infarction involving the cerebral hemispheres, greater on the left, most notably involving the left parietal lobe as detailed above. 2. There is heterogeneous signal within the distal left ICA compatible with occlusion or very slow flow. 12/02; MRI suggestive of acute CVA, cont aspirin and statin. follow PT eval 12/03; patient need acute rehab, CM consulted for placement. 12/04: patient waiting on placement. Remains persistently bradycardic at low 40s on telemetry. Will consult cardiology for further recommendation 12/05; clinically stable, discharge pending on acute rehab placement 12/06: pending placement to acute rehab. ordered repeat PT eval Subjective Date of service: 12/07/19 Interval history: Patient seen and examined c/o rightsided weakness, tolerating diet denies chest pain or SOB Need acute rehab for discharge Objective - Exam Narrative Exam: General appearance: Present: no acute distress, well-nourished - EENT Eyes: Present: PERRL, EOM intact. Absent: scleral icterus ENT: hearing intact, clear oral mucosa, dentition normal - Neck Neck: Present: supple, normal ROM - Respiratory Respiratory effort: normal Respiratory: bilateral: CTA - Cardiovascular Rhythm: regular Heart Sounds: Present: S1 & S2, systolic murmur (soft). Absent: gallop, diastolic murmur, rub - Extremities Extremities: no ischemia, pulses intact, pulses symmetrical, No edema, Full ROM Peripheral Pulses: within normal limits - Abdominal General gastrointestinal: Present: soft, non-tender, non-distended, normal bowel sounds. Absent: mass - Integumentary Integumentary: Present: clear, warm, dry. Absent: rash - Musculoskeletal Musculoskeletal: right sided weakness - Psychiatric Psychiatric: appropriate mood/affect, intact judgment & insight, memory intact, cooperative - Neurologic Neurologic: CNII-XII intact, focal deficits (Right Sided Weakness) - Constitutional Vitals: Vital Signs - 12hr 12/07/19 12/07/19 12/07/19 03:58 08:03 10:00 Temperature 98.3 F 97.9 F Pulse Rate 49 L 51 L 53 L Pulse Rate [ 53 L Apical] Respiratory 16 18 Rate Blood Pressure 95/55 99/57 Blood Pressure [Right] O2 Sat by Pulse 97 97 97 Oximetry 12/07/19 12:14 Temperature 97.9 F Pulse Rate 82 Pulse Rate [ Apical] Respiratory 18 Rate Blood Pressure Blood Pressure 100/56 [Right] O2 Sat by Pulse 97 Oximetry - Labs CBC & Chem 7: 12/04/19 04:41 12/04/19 04:41 Labs: Abnormal lab results 12/06/19 Range/Units 20:40 POC Glucose 118 H (70-105) HEART Score - HEART Score Troponin: Troponin T < 0.010 ng/mL (0.00-0.029) 12/02/19 18:34
--- NOTE | 2019-12-07 14:22 | Progress Note ---
Assessment and Plan S/P Acute CVA Asymptomatic sinus bradycardia Recommend: Continue ongoing evaluation and treatment for acute CVA No specific treatment is needed for asymptomatic sinus bradycardia Will follow on PRN basis Subjective Date of service: 12/07/19 Interval history: No acute events Objective Vital Signs Temp Pulse Pulse Resp BP BP Pulse Ox 12/07/19 12:14 97.9 F 82 18 100/56 97 12/07/19 10:00 53 L 53 L 97 12/07/19 08:03 97.9 F 51 L 18 99/57 97 12/07/19 03:58 98.3 F 49 L 16 95/55 97 12/06/19 23:33 98.8 F 58 L 16 116/65 98 12/06/19 22:00 51 L 12/06/19 19:59 97.8 F 49 L 16 103/58 100 12/06/19 16:44 98.4 F 12/06/19 16:31 99.4 F 52 L 18 90/51 98 - Physical Examination Neck: Positive: neck supple Abdomen: Positive: Soft, Active Bowel Sounds Extremities: Absent: edema
--- NOTE | 2019-12-08 09:59 | Progress Note ---
Assessment and Plan S/P Acute CVA - on plavix and aspirin Asymptomatic sinus bradycardia Recommend: Continue ongoing evaluation and treatment for acute CVA Will check a TSH. Subjective Date of service: 12/08/19 Interval history: Patient is resting in bed and has no cardiac complaints. Sinus bradycardia, rate 49 on telemetry. Objective Vital Signs Temp Pulse Pulse Resp BP BP Pulse Ox 12/08/19 07:43 98.2 F 49 L 18 99/54 97 12/08/19 03:12 98.7 F 50 L 14 106/53 98 12/07/19 23:15 99.6 F 49 L 16 112/69 97 12/07/19 22:00 54 L 12/07/19 19:17 98.0 F 59 L 16 137/75 98 12/07/19 16:01 98.7 F 50 L 18 108/67 99 12/07/19 12:14 97.9 F 82 18 100/56 97 12/07/19 10:00 53 L 53 L 97 - Physical Examination General: No Apparent Distress HEENT: Positive: PERRL Neck: Positive: neck supple Cardiac: Positive: Bradycardia Lungs: Positive: Decreased Breath Sounds Extremities: Absent: edema
--- NOTE | 2019-12-08 10:09 | Discharge Summary ---
Providers - Providers Date of Admission: 12/02/19 23:41 Date of discharge: 12/08/19 Attending physician: GABY TAN 12/02/19 23:57 Consult to Dietitian/Nutrition [CONS] Routine Physician Instructions: Reason For Exam: Reason for Consult: Nutrition Recommendations Reason for Consult: Diet education Occupational Therapy Evaluate and Treat [CONS] Routine Comment: Reason For Exam: Neuro deficits Physical Therapy Evaluation and Treat [CONS] Routine Comment: Reason For Exam: Neuro deficits 12/03/19 Consult to Physician [CONS] Routine Comment: Consulting Provider: SHWETA EVANS Physician Instructions: Reason For Exam: CVA 12/05/19 11:23 Consult to Physician [CONS] Routine Comment: Consulting Provider: REESE BRADSHAW Physician Instructions: Reason For Exam: bradycardia Primary care physician: [employer] Hospitalization Condition: Fair Pertinent studies: Head CT CTA head/neck 2 d echo MRI brain carotid doppler Hospital course: Patient is a 39-year-old -[place] female who presents to the emergency room complaining of right-sided weakness and numbness started about 5 days ago and has gotten progressively worse. 3 days ago she started having slow speech but she denies any difficulty swallowing and denies any facial droop. Work-up in the emergency room today shows complete occlusion of the left ICA on CT angiogram of the brain. CT scan of the head showed subacute stroke. Tele-neurology was consulted and recommendation is to place patient on aspirin and Plavix and admit for full CVA work-up. MRI: 1. There are patchy areas of acute infarction involving the cerebral hemispheres, greater on the left, most notably involving the left parietal lobe as detailed above. 2. There is heterogeneous signal within the distal left ICA compatible with occlusion or very slow flow. Daily course: 12/02; MRI suggestive of acute CVA, cont aspirin, plavix and statin. follow PT eval 12/03; patient need acute rehab per PT, CM consulted for placement. 12/04: patient waiting on placement. Remains persistently bradycardic at low 40s on telemetry. Will consult cardiology for further recommendation 12/05; clinically stable, discharge pending on acute rehab placement. Medical mx per cardiology 12/06: pending placement to acute rehab. ordered repeat PT eval 12/07: Repeat Pt eval recommended HH with roller walker. patient's symptom improved and stable. discharge home in stable condition. Discharge diagnosis: Acute left parietal lobe CVA (cerebral vascular accident) -39ys old femal presented with a new onset of right side numbness and weakness X3 days she is not a candidate for TPA -CTA is remarkable for left side decrease caliber in distal cervical ICA and increse irregularities in cavernous segnment of left ICA, -Echo is EF#55-60% -MRI brain positive for acute CVA left frontal and parietal involvment -neurology consulted and recommended to continue aspirin and plavix for 3 months then to continue plavix Sinus bradycardia, preserved EF on 2d echo - consulted cardiology, recommended supportive care -- DVT prophylaxis Patient placed on sequential compression device. -- Full code status Disposition: DC/TX- HOME [facility] Time spent for discharge: 34 minutes Core Measure Documentation - Palliative Care Palliative Care/ Comfort Measures: Not Applicable - Core Measures Any of the following diagnoses?: stroke - Stroke Discharge Requirements Statin for LDL = or >70 mg/dl on DC: Yes Anticoag for atrial fib/atrial flutter: Not Applicable Antithrombotic for ischemic stroke: Yes Exam - Physical Exam Narrative exam: General appearance: Present: no acute distress, well-nourished - EENT Eyes: Present: PERRL, EOM intact. Absent: scleral icterus ENT: hearing intact, clear oral mucosa, dentition normal - Neck Neck: Present: supple, normal ROM - Respiratory Respiratory effort: normal Respiratory: bilateral: CTA - Cardiovascular Rhythm: regular Heart Sounds: Present: S1 & S2, systolic murmur (soft). Absent: gallop, diastolic murmur, rub - Extremities Extremities: no ischemia, pulses intact, pulses symmetrical, No edema, Full ROM Peripheral Pulses: within normal limits - Abdominal General gastrointestinal: Present: soft, non-tender, non-distended, normal bowel sounds. Absent: mass - Integumentary Integumentary: Present: clear, warm, dry. Absent: rash - Musculoskeletal Musculoskeletal: right sided weakness - Psychiatric Psychiatric: appropriate mood/affect, intact judgment & insight, memory intact, cooperative - Neurologic Neurologic: CNII-XII intact, focal deficits (Right Sided Weakness) - Constitutional Vitals: Temp Pulse Resp BP Pulse Ox 98.2 F 49 L 18 99/54 97 12/08/19 07:43 12/08/19 07:43 12/08/19 07:43 12/08/19 07:43 12/08/19 07:43 Plan Activity: fall precautions Weight Bearing Status: Non-Weight Bearing Diet: low fat, low salt Additional Instructions: ASA 325 mg plus Plavix 75 mg daily for 3 months then Plavix 75mg alone there after. Follow up with: PRIMARY CARE, [Primary Care Provider] - 3-5 Days MARGRET NATH MD [Staff Physician] - 7 Days Prescriptions: AtorvaSTATin [Lipitor] 80 mg PO QHS #30 tablet Aspirin 325 mg PO QDAY #90 tablet Clopidogrel [Plavix] 75 mg PO QDAY #30 tablet
[2019-12-08] MEDS: ASPIRIN 325 MG TAB PO SCH (10:57)
[2019-12-08] MEDS: CLOPIDOGREL 75 MG TAB PO SCH (10:57)
[2019-12-09 08:44] VITALS: BP 122/70
[2019-12-09] MEDS: ASPIRIN 325 MG TAB PO SCH (09:39)
[2019-12-09] MEDS: CLOPIDOGREL 75 MG TAB PO SCH (09:39)
--- NOTE | 2019-12-09 15:01 | Event Note ---
Date: 12/09/19 Patient was discharged this morning as yesterday his family member did not show up to pick her up manager managed backup services arranged transportation and patient was discharged in stable condition
== END 2019-12-09 12:25 | disposition home health service (06) | DRG 65 ==
LOC: ED 17:15 → 4A 23:41
PROVIDERS: ADMIT Internal Medicine Geriatric Medicine; ATTEND Internal Medicine
DX: I63.9 Cerebral infarction, unspecified (principal); G81.91 Hemiplegia, unspecified affecting right dominant side; F17.210 Nicotine dependence, cigarettes, uncomplicated; Z71.6 Tobacco abuse counseling; R53.1 Weakness; Z90.49 Acquired absence of other specified parts of digestive tract; Z83.3 Family history of diabetes mellitus
CPT/HCPCS: 36415; 70450; 70496; 70498; 70551; 80048; 80061; 80307; 80320; 81001; 81025; 82550; 82553; 82962; 84443; 84484; 85025; 85610; 85670; 85730; 93005; 93306; 93880; 99406; G0378; A9270-GY; G0480; Q9967

== ENCOUNTER 2020-02-02 11:53 | Emergency (ER) | payer SELFPAY ==
--- NOTE | 2020-02-02 12:47 | Event Note ---
ED Screening Note ED Screening Note: bilateral LE numbness and weakness that began 2 weeks ago states she feels generalized weakness no CASTRO currently no vision changes no n/v/d she is ambulatory has not follow up with neurologist recent admission for stroke no other pmhx no allergies to meds This initial assessment/diagnostic orders/clinical plan/treatment(s) is/are subject to change based on patients health status, clinical progression and re- assessment by fellow clinical providers in the ED. Further treatment and workup at subsequent clinical providers discretion. Patient/guardian urged not to elope from the ED as their condition may be serious if not clinically assessed and managed. Initial orders include: labs
[2020-02-02 14:46] LABS: Basophils % (Auto) 0.7 % (0.0-1.8); Eosinophils # (Auto) 0.1 K/mm3 (0.0-0.4); Eosinophils % (Auto) 1.8 % (0.0-4.3); Hematocrit 42.2 % (30.3-42.9); Hemoglobin 13.3 gm/dl (10.1-14.3); Lymphocytes # (Auto) 1.9 K/mm3 (1.2-5.4); Lymphocytes % (Auto) 36.9 % (13.4-35.0); Mean Corpuscular HGB Conc 32 % (30-34); Mean Corpuscular Volume 90 fl (79-97); Monocytes # (Auto) 0.3 K/mm3 (0.0-0.8); Monocytes % (Auto) 6.5 % (0.0-7.3); Platelet Count 316 K/mm3 (140-440); Red Blood Count 4.68 M/mm3 (3.65-5.03); Red Cell Distribution Width 14.4 % (13.2-15.2)
[2020-02-02 14:58] LABS: Alanine Aminotransferase 21 units/L (7-56); Blood Urea Nitrogen 4 mg/dL (7-17); Calcium 9.2 mg/dL (8.4-10.2); Hemolysis Index 5
--- NOTE | 2020-02-02 14:58 | Cat Scan Report ---
CT HEAD WITHOUT CONTRAST INDICATION / CLINICAL INFORMATION: Bilateral lower extremity weakness, recent stroke. TECHNIQUE: All CT scans at this location are performed using CT dose reduction for ALARA by means of automated e xposure control. COMPARISON: Head CT 12/02/2019 and CTA head 12/02/2019 FINDINGS: HEMORRHAGE: No evidence of intracranial hemorrhage or extra-axial fluid collection. EXTRA-AXIAL SPACES: Cortical sulci, sylvian fissures and basilar cisterns have an unremarkable appear ance. VENTRICULAR SYSTEM: The third and lateral ventricles are of normal size and configuration. CEREBRAL PARENCHYMA: Interval development of an area of decreased attenuation is noted involving the right gangliocapsular region adjacent to the head of right caudate nucleus. This is a new finding com pared to 12/02/2019 and does not correspond to the distribution of the patient's previously demonstrate d left middle cerebral artery infarction. This may represent a late acute or subacute infarction. Sub tle areas of decreased attenuation are observed in the distribution the patient's previously demonstr ated left MCA infarction. MIDLINE SHIFT OR HERNIATION: There is no mass effect. CEREBELLUM / BRAINSTEM: Brainstem and cerebellum have an unremarkable appearance. MIDLINE STRUCTURES:No abnormalities of the pituitary gland or pineal region are identified. INTRACRANIAL VESSELS:No abnormalities are identified on this noncontrast head CT. ORBITS: visualized portions of the orbits have an unremarkable appearance. SOFT TISSUES of HEAD: No significant abnormality. CALVARIUM: Evaluation of bone windows reveals no abnormalities. PARANASAL SINUSES / MASTOID AIR CELLS: Paranasal sinuses are free from inflammatory mucosal disease. Mastoid air cells are normally pneumatized. ADDITIONAL FINDINGS: None. IMPRESSION: 1. Interval development of evidence of a right gangliocapsular infarction which has developed since . 2. Encephalomalacia is observed in the left parietal lobe secondary to remote left MCA infarction. Th is infarction was first demonstrated on 12/02/2019. 3. No evidence of intracranial hemorrhage or mass lesion. Signer Name: Yury Bianchi MD Signed: 02/02/2020 2:54 PM Workstation Name: [id number]
[2020-02-02 15:01] LABS: BUN/Creatinine Ratio 7
--- NOTE | 2020-02-02 15:26 | Emergency Department Report ---
ED Neuro Deficit HPI - General Chief Complaint: Weakness Stated Complaint: LEG PAIN Time Seen by Provider: 02/02/20 12:46 Source: patient Mode of arrival: Ambulatory Limitations: No Limitations - History of Present Illness Initial Comments: Patient is a 39-year-old female past medical history of stroke who presents with bilateral leg paresthesia and weakness that has been going on for the last 4 days. Patient states that she is able to walk however she told her dad she was experiencing the symptoms and her dad told her to come to the ER. Patient st ates that these were similar symptoms that she had before when she had a stroke. She takes an aspirin and a blood thinner. Patient is unsure of the names of the which medicine she takes. Patient denies having any pain. - Related Data Home Medications: Previous Rx's Medication Instructions Recorded Last Taken Type AtorvaSTATin [Lipitor] 80 mg PO QHS #30 tablet 12/05/19 Unknown Rx Clopidogrel [Plavix] 75 mg PO QDAY #30 tablet 12/05/19 Unknown Rx Aspirin 325 mg PO QDAY #90 tablet 12/08/19 Unknown Rx Allergies/Adverse Reactions: Allergies Allergy/AdvReac Type Severity Reaction Status Date / Time No Known Allergies Allergy Verified 12/03/19 00:20 ED Review of Systems ROS: Stated complaint: LEG PAIN Other details as noted in HPI Constitutional: weakness. denies: chills, fever Eyes: denies: eye pain, eye discharge, vision change ENT: denies: ear pain, throat pain Respiratory: denies: cough, shortness of breath, wheezing Cardiovascular: denies: chest pain, palpitations Endocrine: no symptoms reported Gastrointestinal: denies: abdominal pain, nausea, diarrhea Genitourinary: denies: urgency, dysuria, discharge Musculoskeletal: denies: back pain, joint swelling, arthralgia Skin: denies: rash, lesions Neurological: denies: headache, weakness, paresthesias Psychiatric: denies: anxiety, depression Hematological/Lymphatic: denies: easy bleeding, easy bruising ED Past Medical Hx - Past Medical History Hx Congestive Heart Failure: No Hx Diabetes: No Hx Asthma: No Hx COPD: No - Surgical History Hx Cholecystectomy: Yes - Social History Smoking Status: Current Every Day Smoker Substance Use Type: Alcohol - Medications Home Medications: Home Medications Medication Instructions Recorded Confirmed Last Taken Type AtorvaSTATin [Lipitor] 80 mg PO QHS #30 tablet 12/05/19 Unknown Rx Clopidogrel [Plavix] 75 mg PO QDAY #30 tablet 12/05/19 Unknown Rx Aspirin 325 mg PO QDAY #90 tablet 12/08/19 Unknown Rx ED Neuro Physical Exam - General Limitations: No Limitations General appearance: alert, in no apparent distress Suspected Stroke: Yes - Head Head exam: Present: atraumatic, normocephalic - Eye Eye exam: Present: normal appearance - ENT ENT exam: Present: mucous membranes moist - Neck Neck exam: Present: normal inspection - Respiratory Respiratory exam: Present: normal lung sounds bilaterally. Absent: respiratory distress - Cardiovascular Cardiovascular Exam: Present: regular rate, normal rhythm. Absent: systolic murmur, diastolic murmur, rubs, gallop - GI/Abdominal GI/Abdominal exam: Present: soft, normal bowel sounds - Extremities Exam Extremities exam: Present: other (3/5 strength ) - Back Exam Back exam: Present: normal inspection - Neurological Exam Neurological exam: Present: alert, oriented X3, other (parathesia) - NIHSS Assessment Interval: Baseline 1a. Level of Consciousness: alert/keenly responsive 1b. LOC Questions: answers both correctly 1c. LOC Commands: performs tasks correctly 2. Best Gaze: normal 3. Visual: no visual loss 4. Facial Palsy: normal symmetrical movement 5b. Motor Arm Right: no drift 5a. Motor Arm Left: no drift 6a. Motor Leg Left: no drift 6b. Motor Leg Right: no drift 7. Limb Ataxia: absent 8. Sensory: mild/moderate sensory loss 9. Best Language: no aphasia 10. Dysarthria: normal 11. Extinction/Inattention: no abnormality Total Score: 1 Stroke Severity: Minor Stroke - Psychiatric Psychiatric exam: Present: normal affect, normal mood - Skin Skin exam: Present: warm, dry, intact, normal color. Absent: rash ED Course Vital Signs 02/02/20 02/02/20 12:17 14:06 Temperature 98.5 F 98.4 F Pulse Rate 67 87 Respiratory 18 18 Rate Blood Pressure 104/66 Blood Pressure 130/78 [Right] O2 Sat by Pulse 97 100 Oximetry - Consultations Consultation #1: Spoke with Dr. Cornejo patient can be admitted to to the hospital for further stroke work-up. 02/02/20 19:08 - Lab Data Result diagrams: 02/02/20 14:24 02/02/20 14:24 Lab Results 02/02/20 02/02/20 Range/Units 14:24 14:24 WBC 5.0 (4.5-11.0) K/mm3 RBC 4.68 (3.65-5.03) M/mm3 Hgb 13.3 (10.1-14.3) gm/dl Hct 42.2 (30.3-42.9) % MCV 90 (79-97) fl MCH 28 (28-32) pg MCHC 32 (30-34) % RDW 14.4 (13.2-15.2) % Plt Count 316 (140-440) K/mm3 Lymph % (Auto) 36.9 H (13.4-35.0) % Sandoval % (Auto) 6.5 (0.0-7.3) % Eos % (Auto) 1.8 (0.0-4.3) % Baso % (Auto) 0.7 (0.0-1.8) % Lymph # (Auto) 1.9 (1.2-5.4) K/mm3 Sandoval # (Auto) 0.3 (0.0-0.8) K/mm3 Eos # (Auto) 0.1 (0.0-0.4) K/mm3 Baso # (Auto) 0.0 (0.0-0.1) K/mm3 Seg Neutrophils % 54.1 (40.0-70.0) % Seg Neutrophils # 2.7 (1.8-7.7) K/mm3 Sodium 139 (137-145) mmol/L Potassium 4.3 (3.6-5.0) mmol/L Chloride 101.8 (98-107) mmol/L Carbon Dioxide 29 (22-30) mmol/L Anion Gap 13 mmol/L BUN 4 L (7-17) mg/dL Creatinine 0.6 (0.6-1.2) mg/dL Estimated GFR > 60 ml/min BUN/Creatinine Ratio 7 % Glucose 92 (65-100) mg/dL Calcium 9.2 (8.4-10.2) mg/dL Magnesium 2.40 H (1.7-2.3) mg/dL Total Bilirubin < 0.20 (0.1-1.2) mg/dL AST 20 (5-40) units/L ALT 21 (7-56) units/L Alkaline Phosphatase 105 (35-129) units/L Total Creatine Kinase 160 H (30-135) units/L Total Protein 6.8 (6.3-8.2) g/dL Albumin 4.0 (3.9-5) g/dL Albumin/Globulin Ratio 1.4 % - Medical Decision Making Cdx: Ischemic stroke ddx: Hemorrhagic stroke, TIA I will get blood work, asa, CT scan, and neurology consult Spoke with neurologist Dr. Cornejo she recommends patient be admitted for a couagulopathy workup since her stroke and she has no risk factors. Spoke to Dr. Constantino he states he will evaluate patient and see if the patient meets criteria for admission. - Core Measures AMI Core Measures Followed: Yes Measure Exclusions: not indicated - Thrombolytic Inclusion/Exclusion Thrombolytic Exclusion Criteria: Symptom Onset > 3 Hours Thrombolytic Inclusion Criteria: Ischemic Stroke Onset< 3h Thrombolytic Contraindications: Stroke in Past 3 Months Critical care attestation.: If time is entered above; I have spent that time in minutes in the direct care of this critically ill patient, excluding procedure time. ED Disposition Clinical Impression: Leg paresthesia CVA (cerebral vascular accident) Qualifiers: CVA mechanism: unspecified Qualified Code(s): I63.9 - Cerebral infarction, unspecified Disposition: DC-01 TO HOME OR SELFCARE Is pt being admited?: No Does the pt Need Aspirin: No Referrals: PRIMARY CAREMD [Primary Care Provider] - 3-5 Days MEDHAT WALKER MD [Staff Physician] - 3-5 Days BEVERLEY MORALES MD [Staff Physician] - 3-5 Days
--- NOTE | 2020-02-02 17:19 | Emergency Department Report ---
ED Neuro Deficit HPI - General Chief Complaint: Weakness Stated Complaint: LEG PAIN Time Seen by Provider: 02/02/20 12:46 Source: patient Mode of arrival: Ambulatory Limitations: No Limitations - History of Present Illness On Anticoagulants: No - Related Data Home Medications: Previous Rx's Medication Instructions Recorded Last Taken Type AtorvaSTATin [Lipitor] 80 mg PO QHS #30 tablet 12/05/19 Unknown Rx Clopidogrel [Plavix] 75 mg PO QDAY #30 tablet 12/05/19 Unknown Rx Aspirin 325 mg PO QDAY #90 tablet 12/08/19 Unknown Rx Allergies/Adverse Reactions: Allergies Allergy/AdvReac Type Severity Reaction Status Date / Time No Known Allergies Allergy Verified 12/03/19 00:20 ED Review of Systems ROS: Stated complaint: LEG PAIN Other details as noted in HPI Constitutional: weakness. denies: chills, fever Eyes: denies: eye pain, eye discharge, vision change ENT: denies: ear pain, throat pain Respiratory: denies: cough, shortness of breath, wheezing Cardiovascular: denies: chest pain, palpitations Endocrine: no symptoms reported Gastrointestinal: denies: abdominal pain, nausea, diarrhea Genitourinary: denies: urgency, dysuria, discharge Musculoskeletal: denies: back pain, joint swelling, arthralgia Skin: denies: rash, lesions Neurological: denies: headache, weakness, paresthesias Psychiatric: denies: anxiety, depression Hematological/Lymphatic: denies: easy bleeding, easy bruising ED Past Medical Hx - Past Medical History Hx Congestive Heart Failure: No Hx Diabetes: No Hx Asthma: No Hx COPD: No - Surgical History Hx Cholecystectomy: Yes - Social History Smoking Status: Current Every Day Smoker Substance Use Type: Alcohol - Medications Home Medications: Home Medications Medication Instructions Recorded Confirmed Last Taken Type AtorvaSTATin [Lipitor] 80 mg PO QHS #30 tablet 12/05/19 Unknown Rx Clopidogrel [Plavix] 75 mg PO QDAY #30 tablet 12/05/19 Unknown Rx Aspirin 325 mg PO QDAY #90 tablet 12/08/19 Unknown Rx ED Neuro Physical Exam - General Limitations: No Limitations General appearance: alert, in no apparent distress Suspected Stroke: Yes - NIHSS Assessment Interval: Baseline 1a. Level of Consciousness: alert/keenly responsive 1b. LOC Questions: answers both correctly 1c. LOC Commands: performs tasks correctly 2. Best Gaze: normal 3. Visual: no visual loss 4. Facial Palsy: normal symmetrical movement 5b. Motor Arm Right: drift 5a. Motor Arm Left: no drift 6a. Motor Leg Left: drift 6b. Motor Leg Right: drift 7. Limb Ataxia: present 1 limb 8. Sensory: normal 9. Best Language: no aphasia 10. Dysarthria: normal 11. Extinction/Inattention: no abnormality Total Score: 4 Stroke Severity: Minor Stroke ED Course Vital Signs 02/02/20 02/02/20 12:17 14:06 Temperature 98.5 F 98.4 F Pulse Rate 67 87 Respiratory 18 18 Rate Blood Pressure 104/66 Blood Pressure 130/78 [Right] O2 Sat by Pulse 97 100 Oximetry - Reevaluation(s) Reevaluation #1: 02/02/20 17:19 [facility] Tele[facility] Consult Services Stat Consult Date of Service: 02/02/2020 15:16:55 Impression: Rule Out Acute Ischemic Stroke Comments/Sign-Out: Patient with history of left MCA CVA who presents with bilateral leg weakness, numbness and paresthesias. CT c/w acute to subacute right gangliocapsular stroke, admit for further workup. Will need workup for stroke in the young: vasculitis, screen for thrombotic conditions, arteriopathy, RERE. CT HEAD: Reviewed evolving gangiocapsular ischemia on the right and remote left MCA parietal lobe infarction. Metrics: [employer] Notification Time: 02/02/2020 15:13:56 Stamp Time: 02/02/2020 15:16:55 Callback Response Time: 02/02/2020 15:18:42 Video Start Time: 02/02/2020 17:00:33 Our recommendations are outlined below. Recommendations: continue asa and plavix lipitor 80mg Imaging Studies: MRI Head MRA Head and Neck Without Contrast When Available - Stroke Protocol Echocardiogram - Transthoracic Echocardiogram Therapies: Physical Therapy, Occupational Therapy, Speech Therapy Assessment When Applicable Disposition: Neurology Follow Up Recommended Sign Out: Discussed with Emergency Department Provider Chief Complaint: bilateral leg weakness and paresthesias History of Present Illness: Patient is a 39 year old Female. Patient with hx of prior left MCA stroke who presents with bilateral leg weakness, numbness and paresthesias as well as the right arm. This has been going on for 4 days. After the stroke in November she had residual right arm and leg weakness. She is on asa and plavix denies hx of Afib, no HTN, HLD, no vasculitis. denies hx of alcohol and drug use. No family history of stroke in the young. Past Medical History: Stroke Antiplatelet use: Examination: BP(130/78), Pulse(64), Blood Glucose(139) 1A: Level of Consciousness - Alert; keenly responsive + 0 1B: Ask Month and Age - Both Questions Right + 0 1C: Blink Eyes & Squeeze Hands - Performs Both Tasks + 0 2: Test Horizontal Extraocular Movements - Normal + 0 3: Test Visual Farmer - No Visual Loss + 0 4: Test Facial Palsy (Use Grimace if Obtunded) - Normal symmetry + 0 5A: Test Left Arm Motor Drift - No Drift for 10 Seconds + 0 5B: Test Right Arm Motor Drift - Drift, but doesn't hit bed + 1 6A: Test Left Leg Motor Drift - Drift, but doesn't hit bed + 1 6B: Test Right Leg Motor Drift - Drift, but doesn't hit bed + 1 7: Test Limb Ataxia (FNF/Heel-Grigsby) - Ataxia in 1 Limb + 1 8: Test Sensation - Normal; No sensory loss + 0 9: Test Language/Aphasia - Normal; No aphasia + 0 10: Test Dysarthria - Normal + 0 11: Test Extinction/Inattention - No abnormality + 0 NIHSS Score: 4 Patient/Family was informed the Neurology Consult would happen via TeleHealth consult by way of interactive audio and video telecommunications and consented to receiving care in this manner. Due to the immediate potential for life-threatening deterioration due to underl indira acute neurologic illness, I spent 25 minutes providing critical care. This time includes time for face to face visit via telemedicine, review of medical records, imaging studies and discussion of findings with providers, the patient and/or family. Dr Leela Cornejo [employer] Case [id number] - Lab Data Result diagrams: 02/02/20 14:24 02/02/20 14:24 Lab Results 02/02/20 02/02/20 Range/Units 14:24 14:24 WBC 5.0 (4.5-11.0) K/mm3 RBC 4.68 (3.65-5.03) M/mm3 Hgb 13.3 (10.1-14.3) gm/dl Hct 42.2 (30.3-42.9) % MCV 90 (79-97) fl MCH 28 (28-32) pg MCHC 32 (30-34) % RDW 14.4 (13.2-15.2) % Plt Count 316 (140-440) K/mm3 Lymph % (Auto) 36.9 H (13.4-35.0) % Wise % (Auto) 6.5 (0.0-7.3) % Eos % (Auto) 1.8 (0.0-4.3) % Baso % (Auto) 0.7 (0.0-1.8) % Lymph # (Auto) 1.9 (1.2-5.4) K/mm3 Wise # (Auto) 0.3 (0.0-0.8) K/mm3 Eos # (Auto) 0.1 (0.0-0.4) K/mm3 Baso # (Auto) 0.0 (0.0-0.1) K/mm3 Seg Neutrophils % 54.1 (40.0-70.0) % Seg Neutrophils # 2.7 (1.8-7.7) K/mm3 Sodium 139 (137-145) mmol/L Potassium 4.3 (3.6-5.0) mmol/L Chloride 101.8 (98-107) mmol/L Carbon Dioxide 29 (22-30) mmol/L Anion Gap 13 mmol/L BUN 4 L (7-17) mg/dL Creatinine 0.6 (0.6-1.2) mg/dL Estimated GFR > 60 ml/min BUN/Creatinine Ratio 7 % Glucose 92 (65-100) mg/dL Calcium 9.2 (8.4-10.2) mg/dL Magnesium 2.40 H (1.7-2.3) mg/dL Total Bilirubin < 0.20 (0.1-1.2) mg/dL AST 20 (5-40) units/L ALT 21 (7-56) units/L Alkaline Phosphatase 105 (35-129) units/L Total Creatine Kinase 160 H (30-135) units/L Total Protein 6.8 (6.3-8.2) g/dL Albumin 4.0 (3.9-5) g/dL Albumin/Globulin Ratio 1.4 % Critical care attestation.: If time is entered above; I have spent that time in minutes in the direct care of this critically ill patient, excluding procedure time. ED Disposition Clinical Impression: CVA (cerebral vascular accident) Disposition: OP ADMIT IP TO THIS HOSP Is pt being admited?: Yes Does the pt Need Aspirin: Yes Referrals: PRIMARY CARE, [Primary Care Provider] - 3-5 Days
[2020-02-02] MEDS ORDERED: ASPIRIN 81 MG TAB CHEW PO ONE (17:22)
[2020-02-02 20:12] VITALS: BP 117/75
--- NOTE | 2020-02-02 20:15 | Event Note ---
Date: 02/02/20 39-year-old female with CVA complicated by bilateral leg paresthesia and chronic leg weakness presents to ED for evaluation. Patient seen and evaluated in the emergency department. Lab and imaging studies reviewed. Patient complained of persistent leg weakness over the past 1 week. Patient transported to [facility] via private vehicle for further care and evaluation. Patient seen and evaluated in the emergency department. All lab and imaging studies reviewed. Patient underwent CT scan of the brain in accordance with stroke protocol and was found to have improvement in previous ischemia. Patient medically optimized and discharged home and instructed to follow-up with primary care physician in 3 to 5 days. Patient also instructed to follow-up with rheumatology as well as neurology. Patient acknowledges family history of systemic lupus erythematosus in her mother. Patient counseled regarding autoimmune disease and instructed to seek further outpatient care. Patient prior admission and work-up on 12/02/2019 reviewed. Patient instructed to continue dual antiplatelet therapy as well as statin therapy and a code stroke protocol. - General Limitations: No Limitations General appearance: alert, in no apparent distress Suspected Stroke: Yes - Head Head exam: Present: atraumatic, normocephalic - Eye Eye exam: Present: normal appearance - ENT ENT exam: Present: mucous membranes moist - Neck Neck exam: Present: normal inspection - Respiratory Respiratory exam: Present: normal lung sounds bilaterally. Absent: respiratory distress - Cardiovascular Cardiovascular Exam: Present: regular rate, normal rhythm. Absent: systolic murmur, diastolic murmur, rubs, gallop - GI/Abdominal GI/Abdominal exam: Present: soft, normal bowel sounds - Extremities Exam Extremities exam: Present: other (5/5 strength ) bilateral upper extremities, 4 out of 5 bilateral lower extremities - Back Exam Back exam: Present: normal inspection - Neurological Exam Neurological exam: Present: alert, oriented X3, other (parathesia) - NIHSS Assessment Interval: Baseline 1a. Level of Consciousness: alert/keenly responsive 1b. LOC Questions: answers both correctly 1c. LOC Commands: performs tasks correctly 2. Best Gaze: normal 3. Visual: no visual loss 4. Facial Palsy: normal symmetrical movement 5b. Motor Arm Right: no drift 5a. Motor Arm Left: no drift 6a. Motor Leg Left: no drift 6b. Motor Leg Right: no drift 7. Limb Ataxia: absent 8. Sensory: mild/moderate sensory loss 9. Best Language: no aphasia 10. Dysarthria: normal 11. Extinction/Inattention: no abnormality Total Score: 1 Stroke Severity: Minor Stroke - Psychiatric Psychiatric exam: Present: normal affect, normal mood - Skin Skin exam: Present: warm, dry, intact, normal color. Absent: rash
[2020-02-02 20:44] LABS: Bilirubin,Urine NEG (Negative); Blood,Urine NEG (Negative); Color,Urine Yellow (Yellow); Mucus,Urine 3+ /HPF; Protein,Urine <15 mg/dL mg/dL (Negative); Urobilinogen,Urine < 2.0 mg/dL (<2.0)
== END 2020-02-02 22:00 | disposition home or self-care (01) ==
LOC: ED 11:53
DX: I63.9 Cerebral infarction, unspecified (principal); F17.200 Nicotine dependence, unspecified, uncomplicated; Z79.899 Other long term (current) drug therapy; Z90.49 Acquired absence of other specified parts of digestive tract
CPT/HCPCS: 36415; 70450; 80053; 81001; 82550; 83735; 85025; 85305

== ENCOUNTER 2020-03-18 00:25 | Emergency (ER) | payer SELFPAY ==
[2020-03-18] MEDS ORDERED: ASPIRIN 325 MG TAB PO ONE (02:17)
[2020-03-18 03:55] LABS: Basophils % (Auto) 0.4 % (0.0-1.8); Eosinophils # (Auto) 0.1 K/mm3 (0.0-0.4); Eosinophils % (Auto) 1.3 % (0.0-4.3); Hematocrit 36.3 % (30.3-42.9); Hemoglobin 11.7 gm/dl (10.1-14.3); Lymphocytes # (Auto) 1.5 K/mm3 (1.2-5.4); Lymphocytes % (Auto) 18.6 % (13.4-35.0); Mean Corpuscular HGB Conc 32 % (30-34); Mean Corpuscular Volume 91 fl (79-97); Monocytes # (Auto) 0.6 K/mm3 (0.0-0.8); Monocytes % (Auto) 7.5 % (0.0-7.3); Platelet Count 315 K/mm3 (140-440); Red Blood Count 3.99 M/mm3 (3.65-5.03); Red Cell Distribution Width 14.3 % (13.2-15.2)
[2020-03-18 04:12] LABS: Blood Urea Nitrogen 6 mg/dL (7-17); Calcium 9.5 mg/dL (8.4-10.2); Hemolysis Index 3
[2020-03-18 04:40] LABS: BUN/Creatinine Ratio 12
--- NOTE | 2020-03-18 05:24 | XRay Report ---
CHEST 1 VIEW, 03/18/2020 5:21 AM CLINICAL INFORMATION/INDICATION: Chest pain COMPARISON: None. FINDINGS: SUPPORT DEVICES: None. HEART: The cardiac silhouette is normal in size. LUNGS/PLEURA: The lungs are clear of focal airspace disease or significant pleural effusion. ADDITIONAL FINDINGS: No additional acute findings. IMPRESSION: 1. No evidence of acute cardiopulmonary process. Signer Name: Nancy Corea MD Signed: 03/18/2020 5:19 AM Workstation Name: [id number]
[2020-03-18 08:17] VITALS: BP 129/62
--- NOTE | 2020-03-18 14:59 | Emergency Department Report ---
ED Chest Pain HPI - General Chief Complaint: Chest Pain Stated Complaint: MIGUE/CHEST DISCOMFORT Time Seen by Provider: 03/18/20 14:51 Source: patient Mode of arrival: Stretcher Limitations: No Limitations - History of Present Illness Initial Comments: 39-year-old F Ukrainian female past medical history CAD having had a stroke about 2 weeks ago presents emerged department complaining of 1 day history of vague chest pain radiates to the right side associated with a mild cough but no fevers, chills, sweats no hemoptysis no hematemesis no hematochezia. Ports no nausea, no vomiting, no orthopnea no exertional exertional dyspnea no presyncope. MD Complaint: chest pain -: Gradual Pain Location: right chest Pain Radiation: none Severity: mild Quality: aching, dull Consistency: constant Improves With: nothing Worsens With: nothing Other Symptoms: cough. denies: acid taste in mouth, palpitations, burping Treatments Prior to Arrival: none - Related Data Previous Rx's Medication Instructions Recorded Last Taken Type AtorvaSTATin [Lipitor] 80 mg PO QHS #30 tablet 12/05/19 Unknown Rx Clopidogrel [Plavix] 75 mg PO QDAY #30 tablet 12/05/19 Unknown Rx Aspirin 325 mg PO QDAY #90 tablet 12/08/19 Unknown Rx Prednisone [predniSONE 10 mg 10 mg PO .TAPER #1 tab.ds.pk 02/02/20 Unknown Rx (6-Day Pack, 21 Tabs)] Allergies Allergy/AdvReac Type Severity Reaction Status Date / Time No Known Allergies Allergy Verified 12/03/19 00:20 Heart Score - HEART Score History: Slightly suspicious EKG: Non-specific Age: < 45 Risk factors: No known risk factors Troponin: < normal limit HEART Score: 1 ED Review of Systems ROS: Stated complaint: MIGUE/CHEST DISCOMFORT Other details as noted in HPI Comment: All other systems reviewed and negative ED Past Medical Hx - Past Medical History Previous Medical History?: Yes Hx CVA: Yes Hx Congestive Heart Failure: No Hx Diabetes: No Hx Renal Disease: Yes Hx Asthma: No Hx COPD: No - Surgical History Past Surgical History?: Yes Hx Cholecystectomy: Yes - Social History Smoking Status: Current Every Day Smoker Substance Use Type: None - Medications Home Medications: Home Medications Medication Instructions Recorded Confirmed Last Taken Type AtorvaSTATin [Lipitor] 80 mg PO QHS #30 tablet 09/05/20 Unknown Rx Clopidogrel [Plavix] 75 mg PO QDAY #30 tablet 12/05/19 Unknown Rx Aspirin 325 mg PO QDAY #90 tablet 12/08/19 Unknown Rx Prednisone [predniSONE 10 mg 10 mg PO .TAPER #1 tab.ds.pk 02/02/20 Unknown Rx (6-Day Pack, 21 Tabs)] ED Physical Exam - General Limitations: No Limitations General appearance: alert, in no apparent distress - Head Head exam: Present: atraumatic, normocephalic - Eye Eye exam: Present: normal appearance, PERRL, EOMI Pupils: Present: normal accommodation - ENT ENT exam: Present: normal exam, mucous membranes moist - Neck Neck exam: Present: normal inspection - Respiratory Respiratory exam: Present: normal lung sounds bilaterally. Absent: respiratory distress - Cardiovascular Cardiovascular Exam: Present: regular rate, normal rhythm. Absent: systolic murmur, diastolic murmur, rubs, gallop - GI/Abdominal GI/Abdominal exam: Present: soft, normal bowel sounds - Extremities Exam Extremities exam: Present: normal inspection - Back Exam Back exam: Present: normal inspection - Neurological Exam Neurological exam: Present: alert, oriented X3 - Psychiatric Psychiatric exam: Present: normal affect, normal mood - Skin Skin exam: Present: warm, dry, intact, normal color. Absent: rash ED Course Vital Signs 03/18/20 03/18/20 03/18/20 02:04 08:15 14:26 Temperature 98.6 F 97.8 F Pulse Rate 70 62 Respiratory 18 16 18 Rate Blood Pressure 115/67 Blood Pressure 129/62 [Right] O2 Sat by Pulse 96 98 100 Oximetry RM score - Rm Score Age > 65: (0) No Aspirin use within the Past 7 Days: (0) No 3 or more CAD Risk Factors: (1) Yes 2 or more Angina events in past 24 hrs: (0) No Known CAD with more than 50% Stenosis: (0) No Elevated Cardiac Markers: (0) No ST Deviation Greater than 0.5mm: (0) No RM Score: 1 ED Medical Decision Making - Lab Data Result diagrams: 03/18/20 02:57 03/18/20 02:57 - EKG Data EKG shows normal: sinus rhythm Rate: normal - EKG Data Interpretation: normal EKG - Radiology Data Radiology results: report reviewed Patient Name: KORIN SIMPSON Gender: Female Date of : 1980 Referring Provider: DOC, ED Organization: [facility] Accession Number: [id number] Requested Date: March 18, 2020 02:17 Report Status: Final Requested Procedure: 1 Procedure Description: XR chest 1V ap Modality: XR Findings Reporting MD: Nancy Corea Dictation Time: March 18, 2020 04:19 Property Insurance Inspector: Not available Tile Professional Date: CHEST 1 VIEW, 03/18/2020 5:21 AM CLINICAL INFORMATION/INDICATION: Chest pain COMPARISON: None. FINDINGS: SUPPORT DEVICES: None. HEART: The cardiac silhouette is normal in size. LUNGS/PLEURA: The lungs are clear of focal airspace disease or significant pleural effusion. ADDITIONAL FINDINGS: No additional acute findings. IMPRESSION: 1. No evidence of acute cardiopulmonary process. Signer Name: Nancy Corea MD Signed: 03/18/2020 4:19 AM Workstation Name: [id number] - Medical Decision Making This patient presents with chest pain that is very unlikely angina or acute coronary syndrome. The emergency department evaluation has not identified any cause for suspicion that this chest pain has a cardiac etiology. Based on their history, EKG (which showed no evidence of ischemia or infarction) and imaging, in addition to the patient's physical exam, I see no evidence at this time for a malignant etiology for the patient's chest pain. There is no acute evidence for pulmonary embolus, acute myocardial infarction, pneumothorax, Boerhaeve syndrome, cardiac tamponade, thoracic artery dissection, or any other emergent cardiac, pulmonary or aortic pathology. Given the low pre-test probability for cardiac etiology of chest pain and the absence of any sign of ischemia or infarction, discharge for outpatient follow-up and further evaluation is reasonable. I have explained to the patient that even though a cardiac problem is very unlik taras, follow-up and further testing is required to reduce further the already small uncertainty that exists. Other life-threatening diagnoses have been considered. The patient understands the need to return immediately if their symptoms worsen or they develop any new symptoms, and not to engage in any significant exertional activity until follow-up is obtained. Critical care attestation.: If time is entered above; I have spent that time in minutes in the direct care of this critically ill patient, excluding procedure time. 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
== END 2020-03-18 16:08 | disposition home or self-care (01) ==
LOC: ED 00:25
DX: R07.89 Other chest pain (principal); R05 Cough; F17.200 Nicotine dependence, unspecified, uncomplicated; Z86.73 Personal history of transient ischemic attack (TIA), and cerebral infarction without residual deficits; Z79.899 Other long term (current) drug therapy; Z79.82 Long term (current) use of aspirin
CPT/HCPCS: 36415; 71045; 80048; 84484; 84703; 85025; 93005

== ENCOUNTER 2020-03-22 12:50 | Emergency (ER) | payer SELFPAY ==
--- NOTE | 2020-03-22 18:50 | Event Note ---
ED Screening Note Date of service: 03/22/20 Time: 18:49 ED Screening Note: This is a 39-year-old female presents to ED stating she had a stroke couple of days ago. Patient states she had a stroke in October Patient shows no neurological deficit. This initial assessment/diagnostic orders/clinical plan/treatment(s) is/are subject to change based on patients health status, clinical progression and re- assessment by fellow clinical providers in the ED. Further treatment and workup at subsequent clinical providers discretion. Patient/guardian urged not to elope from the ED as their condition may be serious if not clinically assessed and managed. Initial orders include: Labs ordered. main ed
[2020-03-22 19:45] LABS: Basophils # (Auto) 0.1 K/mm3 (0.0-0.1); Basophils % (Auto) 1.2 % (0.0-1.8); Eosinophils # (Auto) 0.2 K/mm3 (0.0-0.4); Eosinophils % (Auto) 3.4 % (0.0-4.3); Hematocrit 38.9 % (30.3-42.9); Hemoglobin 13.3 gm/dl (10.1-14.3); Lymphocytes # (Auto) 1.4 K/mm3 (1.2-5.4); Lymphocytes % (Auto) 25.1 % (13.4-35.0); Mean Corpuscular HGB Conc 34 % (30-34); Mean Corpuscular Volume 88 fl (79-97); Monocytes # (Auto) 0.4 K/mm3 (0.0-0.8); Monocytes % (Auto) 6.5 % (0.0-7.3); Platelet Count 401 K/mm3 (140-440); Red Blood Count 4.42 M/mm3 (3.65-5.03); Red Cell Distribution Width 14.5 % (13.2-15.2)
[2020-03-22 19:55] LABS: INR 1.02 (0.87-1.13)
[2020-03-22 20:04] LABS: Alanine Aminotransferase 44 units/L (7-56); Albumin 4.4 g/dL (3.9-5); Blood Urea Nitrogen 7 mg/dL (7-17); Calcium 9.7 mg/dL (8.4-10.2); Hemolysis Index 5
[2020-03-22 20:05] LABS: BUN/Creatinine Ratio 10
--- NOTE | 2020-03-22 22:29 | Emergency Department Report ---
ED General Adult HPI - General Chief complaint: Weakness Stated complaint: STROKE Source: patient Mode of arrival: Ambulatory Limitations: No Limitations - History of Present Illness Initial comments: 39-year-old F Armenian female seen 4 days ago, and multiple times this year with past medical history CAD, states she had a stroke about 3 weeks ago presents today for vague weakness for "months" pain is 2/10 generalized, there is no fevers, chills, sweats, no n/v, no, dyspnea, no presyncope, no cp. pt is tolerating po intake, pt is a/o x 3, pt ambulatory with steady gait, pt with nad. Severity scale (0 -10): 0 - Related Data Previous Rx's Medication Instructions Recorded Last Taken Type AtorvaSTATin [Lipitor] 80 mg PO QHS #30 tablet 12/05/19 Unknown Rx Clopidogrel [Plavix] 75 mg PO QDAY #30 tablet 12/05/19 Unknown Rx Aspirin 325 mg PO QDAY #90 tablet 12/08/19 Unknown Rx Prednisone [predniSONE 10 mg 10 mg PO .TAPER #1 tab.ds.pk 02/02/20 Unknown Rx (6-Day Pack, 21 Tabs)] Allergies Allergy/AdvReac Type Severity Reaction Status Date / Time No Known Allergies Allergy Verified 12/03/19 00:20 ED Review of Systems ROS: Stated complaint: STROKE Other details as noted in HPI Constitutional: denies: chills, fever Eyes: denies: eye pain, eye discharge, vision change ENT: denies: ear pain, throat pain Respiratory: denies: cough, shortness of breath, wheezing Cardiovascular: denies: chest pain, palpitations Endocrine: no symptoms reported Gastrointestinal: denies: abdominal pain, nausea, diarrhea Genitourinary: denies: urgency, dysuria, discharge Musculoskeletal: denies: back pain, joint swelling, arthralgia Skin: denies: rash, lesions Neurological: denies: headache, weakness, paresthesias Psychiatric: as per HPI Hematological/Lymphatic: as per HPI ED Past Medical Hx - Past Medical History Hx CVA: Yes Hx Congestive Heart Failure: No Hx Diabetes: No Hx Renal Disease: Yes Hx Asthma: No Hx COPD: No - Surgical History Past Surgical History?: Yes Hx Cholecystectomy: Yes - Social History Smoking Status: Current Every Day Smoker Substance Use Type: None - Medications Home Medications: Home Medications Medication Instructions Recorded Confirmed Last Taken Type AtorvaSTATin [Lipitor] 80 mg PO QHS #30 tablet 12/05/19 Unknown Rx Clopidogrel [Plavix] 75 mg PO QDAY #30 tablet 12/05/19 Unknown Rx Aspirin 325 mg PO QDAY #90 tablet 12/08/19 Unknown Rx Prednisone [predniSONE 10 mg 10 mg PO .TAPER #1 tab.ds.pk 02/02/20 Unknown Rx (6-Day Pack, 21 Tabs)] ED Physical Exam - General Limitations: No Limitations General appearance: alert, in no apparent distress - Head Head exam: Present: atraumatic, normocephalic - Eye Eye exam: Present: normal appearance, PERRL, EOMI. Absent: conjunctival injection, nystagmus Pupils: Present: normal accommodation - ENT ENT exam: Present: mucous membranes moist - Neck Neck exam: Present: normal inspection, full ROM. Absent: tenderness - Respiratory Respiratory exam: Present: normal lung sounds bilaterally. Absent: respiratory distress, wheezes, stridor, chest wall tenderness - Cardiovascular Cardiovascular Exam: Present: regular rate, normal rhythm, normal heart sounds. Absent: systolic murmur, diastolic murmur, rubs, gallop - GI/Abdominal GI/Abdominal exam: Present: soft, normal bowel sounds. Absent: distended, tenderness, guarding, rebound, rigid, bruit, hernia - Rectal Rectal exam: Present: deferred - Extremities Exam Extremities exam: Present: normal inspection, full ROM, normal capillary refill. Absent: tenderness, pedal edema, joint swelling, calf tenderness - Back Exam Back exam: Present: normal inspection, full ROM. Absent: tenderness, CVA tenderness (R), CVA tenderness (L) - Neurological Exam Neurological exam: Present: alert, oriented X3, CN II-XII intact, normal gait, reflexes normal. Absent: motor sensory deficit - Psychiatric Psychiatric exam: Present: normal affect, normal mood. Absent: depressed, agitated, anxious - Skin Skin exam: Present: warm, dry, intact, normal color. Absent: rash ED Course Vital Signs 03/22/20 03/22/20 13:12 18:50 Temperature 98.7 F Pulse Rate 90 112 H Respiratory 19 18 Rate Blood Pressure 112/73 Blood Pressure 117/86 [Left] O2 Sat by Pulse 95 99 Oximetry ED Medical Decision Making - Lab Data Result diagrams: 03/22/20 19:27 03/22/20 19:27 - Medical Decision Making pt is tolerationg po intake without n/v , pt appears well hydrated, well nourished, and with nad, pt is ambulatory with steady gait, there is no weakness note don exam, perrla, eomi, lung sounds are clear bilat , cv: S1&S2 no MRG , abd soft nontender, rom intact and unrestricted. plan dc to home in stable condition will follow up with pcp in 2-3 days. Critical care attestation.: If time is entered above; I have spent that time in minutes in the direct care of this critically ill patient, excluding procedure time. ED Disposition Clinical Impression: Stress Disposition: DC-01 TO HOME OR SELFCARE Is pt being admited?: No Does the pt Need Aspirin: No Condition: Stable Instructions: Weakness, [id number], Rehydration, Adult Referrals: MIRIAM FRANKLIN MD [Staff Physician] - 3-5 Days Time of Disposition: 22:46
[2020-03-22 22:52] VITALS: BP 112/76
== END 2020-03-22 22:52 | disposition home or self-care (01) ==
LOC: ED 12:50
DX: F43.9 Reaction to severe stress, unspecified (principal); I25.10 Atherosclerotic heart disease of native coronary artery without angina pectoris; F17.200 Nicotine dependence, unspecified, uncomplicated; Z79.899 Other long term (current) drug therapy; Z86.73 Personal history of transient ischemic attack (TIA), and cerebral infarction without residual deficits; Z90.49 Acquired absence of other specified parts of digestive tract
CPT/HCPCS: 36415; 80053; 82550; 83615; 83735; 84443; 84484; 85025; 85610

== ENCOUNTER 2020-03-23 21:18 | Emergency (ER) | payer SELFPAY | END 2020-03-24 01:30 | disposition left against medical advice (07) | LOC: ED 21:18 | DX: Z53.21 Procedure and treatment not carried out due to patient leaving prior to being seen by health care provider (principal) ==

== ENCOUNTER 2020-03-31 23:36 | Emergency (ER) | payer SELFPAY | END 2020-03-31 23:46 | disposition left against medical advice (07) | LOC: ED 23:36 | DX: Z00.8 Encounter for other general examination (principal); Z53.21 Procedure and treatment not carried out due to patient leaving prior to being seen by health care provider ==